=== PATIENT | male | born 1955 | race African-American/Black ===

== ENCOUNTER 2017-08-26 12:04 | Inpatient (IN) | payer MEDICARE, MEDICAID ==
[~2017-08-26] VITALS: Ht 172.7 cm; Wt 81.6 kg
[~2017-08-26 12:04] MED LIST: AMLO10TA4 PO; ASPI-991 PO; FLUO-120 PO; GABA300C PO; HYDR-552 PO; LORA1TAB82 PO; LURA80TA PO; MODA200T30 PO; OLOP2.5D EACHEYE; OXYC30TA86 PO; PANT40TA2 PO; RISP2TAB23 PO; TAMS-12 PO; TEMA15CA PO; TRAV5DRO EACHEYE
--- NOTE | 2017-08-26 12:09 | NUR ---
C/O SI AND HI. DEPRESSION, "MY FIANCE' LEFT FOR ANOTHER MAN" PLAN TO OD SELF
--- NOTE | 2017-08-26 12:28 | NUR ---
URINE SAMPLE COLLECTED SENT TO LAB
[2017-08-26 12:35] LABS: APPEARANCE,URINE Clear (CLEAR); BILIRUBIN,URINE Negative (NEGATIVE); BLOOD, URINE Negative Ery/uL (NEGATIVE); COLOR,URINE Yellow (YELLOW); KETONES,URINE Negative (NEGATIVE); LEUKOCYTE ESTERASE ,URINE Negative (NEGATIVE); NITRITE, URINE Negative (NEGATIVE); PROTEIN,URINE Negative (NEGATIVE); UGLUCOSE Negative (NEGATIVE); UROBILINOGEN,URINE 0.2 EU/dL (0.2)
[2017-08-26 12:39] LABS: BASOPHILS % (AUTO) 0.7 % (0.0-2.0); EOSINOPHILS # (AUTO) 0.1 /CMM (0.0-0.7); EOSINOPHILS % (AUTO) 1.3 % (0.0-6.0); HEMATOCRIT 41 % (39-51); HEMOGLOBIN 13.4 g/dL (13.5-17.5); LYMPHOCYTES # (AUTO) 1.4 /CMM (0.8-4.8); MEAN CORPUSCULAR HEMOGLOBIN 31 PG (26.0-33.0); MEAN CORPUSCULAR HGB CONC 33 g/dl (31.0-36.0); MEAN CORPUSCULAR VOLUME 93 fL (80-96); MONOCYTES # (AUTO) 0.5 /CMM (0.1-1.30); NEUTROPHILS # (AUTO) 2.6 /CMM (1.8-8.9); PLATELET COUNT (AUTO) 310 /CMM (150-450); RDW COEFFICIENT OF VARIATION 11.8 (11.5-15.0); RED BLOOD CELL COUNT(AUTO) 4.37 MIL/uL (4.5-6.0); WHITE BLOOD COUNT (AUTO) 4.6 K/uL (4.3-11.0)
[2017-08-26 12:50] LABS: CARBON DIOXIDE 32 mmol/L (21-32); CHLORIDE 98 mmol/L (98-107); CREATININE 0.9 mg/dL (0.6-1.3); GLUCOSE 113 mg/dL (74-106); POTASSIUM 4.4 mmol/L (3.5-5.1); SODIUM SERUM 133 mmol/L (136-145); UREA NITROGEN, BLOOD 12 mg/dL (7-18)
--- NOTE | 2017-08-26 12:50 | NUR ---
ASHLEY AT BEDSIDE FOR PSYCH EVAL
[2017-08-26 12:57] LABS: ACETAMINOPHEN 3 ug/ml (10-30); ALANINE AMINOTRANSFERASE 54 U/L (12-78); ALBUMIN 3.3 g/dL (3.4-5.0); ALCOHOL, BLOOD < 3 mg/dL (0-0); ALKALINE PHOSPHATASE 69 U/L (46-116); ASPARTATE AMINOTRANSFERASE 44 U/L (15-37); BILIRUBIN,DIRECT 0.1 mg/dL (0.0-0.2); BILIRUBIN,TOTAL 0.5 mg/dL (0.2-1.0); SALICYLATE 0.3 mg/dL (2.8-20.0); TOTAL PROTEIN, SERUM 7.2 g/dL (6.4-8.2)
--- NOTE | 2017-08-26 16:47 | NUR ---
gave report to basilio RODRIGUEZ GPS psychosis dr schroeder and dr oreilly admitting room 210
--- NOTE | 2017-08-26 16:49 | NUR ---
dx depression w suicidal ideation
[2017-08-26] MEDS ORDERED: DULO60CA45 PO (16:57)
--- NOTE | 2017-08-26 17:20 | NUR ---
GPS/RN PATIENT ADMITTED IN A VOLUNTARY STATUS UNDER THE CARE OF DR LOCKWOOD AND DR BEGUM. BOTH DR'S ARE NOTIFIED OF NEW ADMISSION, DR BEGUM NOTIFIED OF NEED TO RECONCILE MEDS IN SYSTEM, AWAITING RESPONSE. PATIENT IS ALERT X 3-4, STABLE CONDITION, AMBULATORY, SELF CARE, SKIN INTACT, DEPRESSED MOOD, BLUNTED AFFECT, PATIENT STATED THAT HE WAS HAVING SI AT HIS HOUSE EARLIER BEFORE ADMISSION HOWEVER, HE DENIES ACTIVE SI UPON ADMISSION TO UNIT. VALUABLES AND BELONGINGS COLLECTED, PATIENT HAS UPPER DENTURES IN MOUTH. AT THIS TIME PATIENT IS CALM, COOPERATIVE, NO DISTRESS NOTED, ALL NEEDS ATTENDED, WILL CONTINUE TO MONITOR Q 15 MIN FOR SAFETY AND BEHAVIOR.
[2017-08-26] MEDS ORDERED: MAG HYDROX/AL HYDROX/SIMETH 30 ML UDC PO PRN (18:00)
[2017-08-26] MEDS ORDERED: ACETAMINOPHEN 325 MG TABLET PO PRN (18:00)
[2017-08-26 20:00] VITALS: BP 143/89
[2017-08-26 20:15] VITALS: BP 99/50
[2017-08-26] MEDS: AMLODIPINE BESYLATE 10 MG TABLET PO SCH (22:00)
[2017-08-26] MEDS ORDERED: TAMSULOSIN 0.4 MG CAP.SR.24H PO SCH (22:00)
[2017-08-26] MEDS: LORAZEPAM 0.5 MG TABLET PO PRN (22:06)
[2017-08-26] MEDS: LATANOPROST EYE DROP 0.005% 2.5 ML BOTTLE EACHEYE SCH (22:06)
--- NOTE | 2017-08-26 22:06 | NUR ---
RN NOTES: PATIENT'S BP RECHECKED AT 143/89. PATIENT REFUSED SCHEDULED AMLODIPINE 10 MG PO AT THIS TIME, SAYING HE ONLY TAKES IT IF HIS SBP >150. PATIENT ALSO REFUSED FLOMAX, SAYING HE TAKES IT IN THE MORNING, OR ELSE IT WILL MAKE HIM URINATE ALL THE TIME AND CAUSE HIM TO LOSE SLEEP. EXPLAINED TO PATIENT RE MEDS, PATIENT STILL REFUSING AND STARTED TO APPEAR AGITATED. ASKED FOR ATIVAN. ATIVAN 0.5 MG PO GIVEN. WILL CONT TO MONITOR.
[2017-08-27] MEDS ORDERED: OXYC30TA86 PO (05:52)
[2017-08-27] MEDS ORDERED: MODA200T30 PO (05:52)
[2017-08-27] MEDS ORDERED: FENT1PAT7 TP (05:52)
[2017-08-27] MEDS ORDERED: KETOROLAC TROMETHAMINE INJ 60 MG/2 ML VIAL IM ONE (06:30)
[2017-08-27] MEDS ORDERED: oxyCODONE HCL SR 10MG TAB.SR.12H PO ONE ×2 (06:30→06:31)
--- NOTE | 2017-08-27 06:33 | NUR ---
RN NOTERS: PATIENT COMPLAINING OF 9/10 PAIN OVER LOWER BACK RADIATING TO BILATERAL LEGS, STATES THAT HE TAKES OXYCONTIN 30 MG PO Q 8HRS NEEDED AT HOME, AND REFUSED TO TAKE TYLENOL. CALLED DR FULLER, WHO INITIALLY ORDERED FOR KETOROLAC 60 MG IM ONE TIME DOSE. HOWEVER, MED NOT AVAILABLE AT GPS AND WITH VICE PRESIDENT [employer]ERCIAL [employer]'S NIGHT LOCKER. CALLED DR FULLER AGAIN, MD ORDERED FOR OXYCONTIN 30 MG PO ONE TIME DOSE ONLY. ALSO ASKED IF FLOMAX CAN BE CHANGED TO AM, OKAYED IT. ORDERS NOTED AND CARRIED OUT.
--- NOTE | 2017-08-27 06:44 | NUR ---
RN NOTES: PER PATIENT, HE HAS BEEN TAKING OXYCONTIN FOR YEARS, HE DOES NOT HAVE ALLERGY TO IT. ADMINISTERED OXYCONTIN 30 MG PO FOR SEVERE LOW BACK PAIN.
[2017-08-27 07:19] LABS: ALBUMIN 3.2 g/dL (3.4-5.0); BILIRUBIN,TOTAL 0.6 mg/dL (0.2-1.0); CALCIUM, SERUM 9.2 mg/dL (8.5-10.1); CHOLESTEROL 184 mg/dL (<200); CREATININE 0.9 mg/dL (0.6-1.3); HDL CHOLESTEROL 81 mg/dL (40-60); LDL 91 mg/dL (0-99); POTASSIUM 4.1 mmol/L (3.5-5.1); TOTAL PROTEIN, SERUM 7.2 g/dL (6.4-8.2); TRIGLYCERIDES 55 mg/dL (30-150)
[2017-08-27 08:00] VITALS: BP 128/77
[2017-08-27] MEDS: GABAPENTIN 300 MG CAPSULE PO SCH ×3 (09:51→17:51)
[2017-08-27] MEDS: TAMSULOSIN 0.4 MG CAP.SR.24H PO SCH (09:51)
[2017-08-27] MEDS ORDERED: FENTANYL TD PATCH (75MCG/HR) 75 MCG/HR PATCH.TD72 TD SCH ×3 (11:00→12:00)
--- NOTE | 2017-08-27 13:59 | NUR ---
Pt made threats against his fiance and the man she was having an affair. Pt informed SW that he is still having homicidal thoughts, stating "I am having homicidal thoughts towards the man that I caught my fiance with. If I get my hands on him..." As patient is on voluntary stay and due to the fact that social worker clinical is a mandated waffle machine operator, JAZIEL contacted the [place] [employer] department. JAZIEL initially spoke to veterinary receptionist Irwin who then transported JAZIEL to dispatcher Hamida. Hamida obtained the necessary information and informed JAZIEL that Office Parminder will go to intended victim's house and speak with pt's fiance. JAZIEL stated that the threats were also towards the man involved in the affair, but informed dispatcher that she had no information for that person. JAZIEL then called pt's fiance, Yoselyn Han at [phone]. JAZIEL reached Yoselyn's voicemail and left a message with contact information and informed her that patient was making threats. This is in accordance with Tarasoff bylines. Addendum: 08/27/17 at 1631 by SUMANTH SHERIFF Please note that JAZIEL called the [place] Police Department: [address], [place] [address],
--- NOTE | 2017-08-27 14:49 | NUR ---
Initial Discharge Plan Patient lived with his fiance at [address] [place] [address], . Patient states that under no circumstances does he wish to return. Patient states he has no where else to go and no family to contact. Patient states he wants to be placed at a nursing facility for short term care. SW explained that she will do her best, but that patient only has 17 co-SNF days left. SW will discuss alternative options with patient [board and care, sober living, etc]. SW will help arrange a safe and proper discharge. SW will provide patient with substance abuse referrals upon discharge.
[2017-08-27 15:39] VITALS: BP 108/60
[2017-08-27] MEDS: oxyCODONE/APAP (5/325 MG) 1 UDTAB TABLET PO PRN (15:42)
--- NOTE | 2017-08-27 16:30 | NUR ---
Please note that JAZIEL contacted the [facility] Department: [address] [address], Addendum: 08/27/17 at 1631 by SUMANTH SHERIFF This is in regards to the Tarasoff Report JAZIEL filed.
--- NOTE | 2017-08-27 18:00 | NUR ---
DR. BEGUM,DR. LOCKWOOD IN TO SEE PT.DR. BEGUM CALLED BACK PT. WANTED A DIFFERENT MED THAN PERCOCETTE,NO RETURN CALL FROM DR. BUTLER.CALLED A SECOND TIME.MED. X1 FOR PAIN WITH PERCOCETTE.
[2017-08-27 19:57] VITALS: BP 134/75
[2017-08-27 20:00] VITALS: BP 134/75
[2017-08-27] MEDS: LORAZEPAM 0.5 MG TABLET PO PRN (20:07)
[2017-08-27] MEDS: QUETIAPINE FUMARATE 100 MG TABLET PO SCH (21:05)
[2017-08-27] MEDS: LATANOPROST EYE DROP 0.005% 2.5 ML BOTTLE EACHEYE SCH (21:07)
[2017-08-27] MEDS: AMLODIPINE BESYLATE 10 MG TABLET PO SCH (21:10)
--- NOTE | 2017-08-27 21:35 | NUR ---
NON ADMINISTRATION OF NORVASC 10 MG DUE AT EVENING PER PT MY BP IS OK DESPITE EXPLAINING RISKS AND BENEFITS OFFERED 3 TIMES STILL REFUSED
[2017-08-28] MEDS: oxyCODONE/APAP (5/325 MG) 1 UDTAB TABLET PO PRN (05:56)
--- NOTE | 2017-08-28 06:43 | NUR ---
GPS CLOSING NOTES RESTING IN BED, TOLERATING ROOM AIR 99%, IN STABLE CONDITION. NO S/S OF DISTRESS, KEPT CLEAN AND DRY AND COMFORTABLE, FREQUENT VISUAL CHECK EVERY 2 HOURS FOR SAFETY, NEEDS ATTENDED AND ANTICIPATED. NURSING CARE RENDERED. ON LOW BED AT ALL TIMES. SAFE HAZARD FREE ENVIRONMENT.
[2017-08-28 07:57] VITALS: BP 133/74
--- NOTE | 2017-08-28 08:11 | NUR ---
JAZIEL received a voicemail from Venessa from the crisis team who informed SW that she placed pt on hold. Venessa stated that pt told her Yoselyn was his sister and not the fiance and that he is homeless. Please note that in the assessment with SW, pt told JAZIEL that Yoselyn was his fiance and that he lived with her and does not wish to return there.
[2017-08-28] MEDS: TAMSULOSIN 0.4 MG CAP.SR.24H PO SCH (08:41)
[2017-08-28] MEDS: GABAPENTIN 300 MG CAPSULE PO SCH ×3 (08:41→17:00)
[2017-08-28] MEDS: DULOXETINE HCL 30 MG CAPSULE.DR PO SCH (08:41)
--- NOTE | 2017-08-28 11:30 | NUR ---
pt. informed rn that he took off duragesic patch last ochoa. due to vomiting.stated he did not tell ochoa. rn,now asking for strong po pain med.told him i would contact dr. oreilly.
--- NOTE | 2017-08-28 11:35 | NUR ---
call out to dr. oreilly requesting oxycontin-states he will follow up.
[2017-08-28] MEDS ORDERED: oxyCODONE HCL SR 40MG TAB.SR.12H PO SCH (15:00)
--- NOTE | 2017-08-28 15:06 | NUR ---
oxycontin sr started.dr. oreilly in and gave order.
[2017-08-28] MEDS: oxyCODONE IR immediate release 5 MG CAPSULE PO PRN (16:04)
--- NOTE | 2017-08-28 16:04 | NUR ---
oxy -ir given.
[2017-08-28 16:09] VITALS: BP 136/77
--- NOTE | 2017-08-28 18:00 | NUR ---
states some effect from oxycontin meds.
[2017-08-28 20:02] VITALS: BP 123/76
[2017-08-28] MEDS: QUETIAPINE FUMARATE 100 MG TABLET PO SCH (21:39)
[2017-08-28] MEDS: LATANOPROST EYE DROP 0.005% 2.5 ML BOTTLE EACHEYE SCH (21:40)
[2017-08-28] MEDS: AMLODIPINE BESYLATE 10 MG TABLET PO SCH (21:44)
[2017-08-28] MEDS: oxyCODONE HCL SR 40MG TAB.SR.12H PO SCH (23:40)
[2017-08-29] MEDS: oxyCODONE IR immediate release 5 MG CAPSULE PO PRN ×4 (01:48→20:53)
--- NOTE | 2017-08-29 05:33 | NUR ---
PATIENT C/O BACK PAIN OXYCONTIN 40 MG X1 THEN OXYCOTIN 10 MG FOR A BREAK THROUGH GIVEN REFUSED JAMES STATING "I DONT HAVE BLOOD PRESSURE" , SLEPT WELL.
--- NOTE | 2017-08-29 07:05 | NUR ---
RN OPENING NOTES PT SITTING UP IN CHAIR IN ACTIVITY ROOM. COOPERATIVE. DENIES SI/AVH. AMBL INDEP. GOOD APPETITE. FREE OF INJURIES. GETS ALONG WELL W/ STAFF AND OTHER PATIENTS. WILL CONT TO MONITOR CLOSELY.
[2017-08-29] MEDS: TAMSULOSIN 0.4 MG CAP.SR.24H PO SCH (08:01)
[2017-08-29] MEDS: oxyCODONE HCL SR 40MG TAB.SR.12H PO SCH ×2 (08:02→20:07)
[2017-08-29] MEDS: GABAPENTIN 300 MG CAPSULE PO SCH ×3 (08:02→17:00)
[2017-08-29] MEDS: DULOXETINE HCL 30 MG CAPSULE.DR PO SCH (08:02)
[2017-08-29 08:13] VITALS: BP 132/77
[2017-08-29] MEDS: LORAZEPAM 0.5 MG TABLET PO PRN (11:38)
[2017-08-29] MEDS: MAGNESIUM HYDROXIDE 30 ML UDC PO PRN (11:39)
--- NOTE | 2017-08-29 13:45 | NUR ---
RN NOTES PT STATES HE SMOKES 1/2 TO 1 PACK/ DAY AND DOES NOT NEED/ WANT NICOTINE PATCH.
[2017-08-29 15:33] VITALS: BP 125/72
--- NOTE | 2017-08-29 17:53 | NUR ---
RN CLOSING NOTES PT AMBUL IN [place] W/ FWW. REFUSED GABAPENTIN 17:00 HRS DOSE. PRN OXYCODONE GIVEN AT 0900 AND 1500 HRS. DENIES SI/AVH. AMBL INDEP. GOOD APPETITE. FREE OF INJURIES. GETS ALONG WELL W/ STAFF AND OTHER PATIENTS. WILL CONT TO MONITOR CLOSELY.
[2017-08-29 20:00] VITALS: BP 124/82
--- NOTE | 2017-08-29 20:53 | NUR ---
GPS RN NOTES: PATIENT A/O X3. PATIENT COMPLAINED OF PAIN ON HIS LOWER BACK. ON A SCALE OF 0 TO 10 AND 10 IS THE WORST PAIN IMAGINABLE PATIENT RATES 8 OUT OF 10. OXYCODONE IR 10MG GIVEN ORDERED FOR BREAKTHROUGH PAIN. WILL CONTINUE TO MONITOR AND ASSESS PATIENT FOR ANY PAIN OR DISCOMFORT.
[2017-08-29] MEDS: AMLODIPINE BESYLATE 10 MG TABLET PO SCH (21:19)
[2017-08-29] MEDS: QUETIAPINE FUMARATE 25 MG TABLET PO SCH (21:19)
[2017-08-30] MEDS: LATANOPROST EYE DROP 0.005% 2.5 ML BOTTLE EACHEYE SCH ×2 (00:10→21:08)
[2017-08-30] MEDS: oxyCODONE IR immediate release 5 MG CAPSULE PO PRN ×4 (03:11→21:56)
[2017-08-30 08:00] VITALS: BP 110/78
[2017-08-30] MEDS: TAMSULOSIN 0.4 MG CAP.SR.24H PO SCH (08:01)
[2017-08-30] MEDS: GABAPENTIN 300 MG CAPSULE PO SCH ×3 (08:01→17:08)
[2017-08-30] MEDS: oxyCODONE HCL SR 40MG TAB.SR.12H PO SCH ×2 (08:01→20:43)
[2017-08-30] MEDS: DULOXETINE HCL 30 MG CAPSULE.DR PO SCH (08:01)
[2017-08-30] MEDS: LORAZEPAM 0.5 MG TABLET PO PRN (11:51)
[2017-08-30] MEDS: MAGNESIUM HYDROXIDE 30 ML UDC PO PRN (11:54)
[2017-08-30 15:59] VITALS: BP 109/70
[2017-08-30 20:00] VITALS: BP 132/80
[2017-08-30] MEDS: QUETIAPINE FUMARATE 25 MG TABLET PO SCH (21:09)
[2017-08-30] MEDS: AMLODIPINE BESYLATE 10 MG TABLET PO SCH (22:00)
--- NOTE | 2017-08-30 22:14 | NUR ---
GPS RN NOTES PATIENT REFUSED AMLODIPINE. RISKS VERSUS BENEFITS EXPLAINED TO PATIENT. PATIENT STILL REFUSED.
[2017-08-30] MEDS: TEMAZEPAM 7.5 MG CAPSULE PO PRN (23:37)
[2017-08-31] MEDS: oxyCODONE IR immediate release 5 MG CAPSULE PO PRN ×3 (06:03→21:30)
[2017-08-31 07:36] VITALS: BP 128/74
[2017-08-31] MEDS: TAMSULOSIN 0.4 MG CAP.SR.24H PO SCH (08:12)
[2017-08-31] MEDS: DULOXETINE HCL 30 MG CAPSULE.DR PO SCH (08:12)
[2017-08-31] MEDS: oxyCODONE HCL SR 40MG TAB.SR.12H PO SCH ×2 (08:13→20:14)
[2017-08-31] MEDS: GABAPENTIN 300 MG CAPSULE PO SCH ×3 (08:13→16:48)
[2017-08-31] MEDS: LORAZEPAM 0.5 MG TABLET PO PRN (14:38)
[2017-08-31 16:00] VITALS: BP 136/79
[2017-08-31 20:00] VITALS: BP 123/64
[2017-08-31] MEDS: QUETIAPINE FUMARATE 25 MG TABLET PO SCH (21:20)
[2017-08-31] MEDS: LATANOPROST EYE DROP 0.005% 2.5 ML BOTTLE EACHEYE SCH (21:21)
[2017-08-31] MEDS: AMLODIPINE BESYLATE 10 MG TABLET PO SCH (22:00)
--- NOTE | 2017-08-31 22:02 | NUR ---
GPS RN NOTES PATIENT REFUSED AMLODIPINE AGAIN. RISKS VERSUS BENEFITS EXPLAINED TO PATIENT. PATIENT CONTINUES TO REFUSE MEDICATION..
[2017-09-01] MEDS: oxyCODONE IR immediate release 5 MG CAPSULE PO PRN ×4 (03:11→23:24)
[2017-09-01 08:02] VITALS: BP 130/78
[2017-09-01] MEDS: DULOXETINE HCL 30 MG CAPSULE.DR PO SCH (08:38)
[2017-09-01] MEDS: TAMSULOSIN 0.4 MG CAP.SR.24H PO SCH (08:38)
[2017-09-01] MEDS: GABAPENTIN 300 MG CAPSULE PO SCH ×3 (08:38→16:33)
[2017-09-01] MEDS: oxyCODONE HCL SR 40MG TAB.SR.12H PO SCH ×2 (08:38→21:08)
--- NOTE | 2017-09-01 10:06 | NUR ---
RN NOTES ADMINISTERED OXY IR 20 MG PO PRN FOR GENERALIZED PAIN 05/23, V/S TAKEN BP -132/78, P-83, ENCOURAGED TO INCREASE FLUID INTAKE, SAFETY PRECAUTION MAINTAINED ALL THE TIME.
--- NOTE | 2017-09-01 11:13 | NUR ---
RN NOTES PER Dr. SMALLWOOD VERBAL ORDER, ORDERED ARTIFICIAL TEARS Q 8HR PRN, ORDER TAKEN AND CARRIED OUT. Addendum: 09/01/17 at 1116 by DARRIUS MCFARLAND RN AMENDMENT OF ABOVE NOTES. ARTIFICIAL TEARS FOR DRY EYES.
[2017-09-01] MEDS ORDERED: POLYVINYL ALCOHOL 15 ML BOTTLE EACHEYE PRN (11:30)
[2017-09-01] MEDS: LORAZEPAM 0.5 MG TABLET PO PRN (13:51)
--- NOTE | 2017-09-01 13:51 | NUR ---
RN NOTES ADMINISTERED ATIVAN O.5 MG PO PRN, AND ARTIFICIAL TEARS FOR DRY EYES, V/S TAKEN BP 128/76, P-80, CONTINUED MONITORING.
[2017-09-01 16:00] VITALS: BP 120/77
--- NOTE | 2017-09-01 16:52 | NUR ---
RN NOTES ADMINISTERED OXY IR 20 MG PO PRN FOR GENERALIZED PAIN 8/10, PER SLIDING SCALE. PER PATIENT REQUEST, V/S TAKEN STABLE BP -120/77, P-76, CONTINUED MONITORING.
--- NOTE | 2017-09-01 18:30 | NUR ---
RN NOTES CALLED DR BEGUM FOR BREATHING TREATMENT, GET ORDER ALBUTEROL 2 PUFFS Q 4 HR. ORDER TAKEN, AND CARRIED OUT.
[2017-09-01] MEDS ORDERED: ALBUTEROL FS 2.5 MG/0.5 ML VIAL.NEB NEB PRN (19:00)
[2017-09-01 19:34] VITALS: BP 127/77
[2017-09-01] MEDS: QUETIAPINE FUMARATE 25 MG TABLET PO SCH (21:07)
[2017-09-01] MEDS: AMLODIPINE BESYLATE 10 MG TABLET PO SCH ×2 (21:07→21:14)
[2017-09-01] MEDS: LATANOPROST EYE DROP 0.005% 2.5 ML BOTTLE EACHEYE SCH (21:08)
--- NOTE | 2017-09-01 21:14 | NUR ---
RN NOTES PATIENT REFUSED NORVASC 10 MG X3, STATES HE DOES NOT TAKE BLOOD PRESSURE MEDICATION. PATIENT EDUCATION REINFORCED. WILL CONTINUE TO MONITOR.
--- NOTE | 2017-09-01 23:24 | NUR ---
RN NOTES ADMINISTERED OXYCODONE IR 20MG ORDERED FOR PAIN 8/10 IN LOWER BACK. VSS. WILL CONTINUE TO MONITOR.
[2017-09-02] MEDS: oxyCODONE IR immediate release 5 MG CAPSULE PO PRN ×4 (05:02→23:17)
--- NOTE | 2017-09-02 05:02 | NUR ---
RN NOTES ADMINISTERED OXYCODONE IR 20MG ORDERED FOR PAIN 10/10 IN BOTH LEGS. VSS. WILL CONTINUE TO MONITOR.
[2017-09-02 08:06] VITALS: BP 113/78
[2017-09-02] MEDS: TAMSULOSIN 0.4 MG CAP.SR.24H PO SCH (08:19)
[2017-09-02] MEDS: GABAPENTIN 300 MG CAPSULE PO SCH ×3 (08:19→17:03)
[2017-09-02] MEDS: DULOXETINE HCL 30 MG CAPSULE.DR PO SCH (08:19)
[2017-09-02] MEDS: oxyCODONE HCL SR 40MG TAB.SR.12H PO SCH ×2 (08:19→20:58)
--- NOTE | 2017-09-02 11:09 | NUR ---
GPS/RN PATIENT REPORTS 9/10 BACK PAIN, ADMINISTERED OXY JR 20 MG, WILL CONTINUE TO MONITOR.
[2017-09-02] MEDS: LORAZEPAM 0.5 MG TABLET PO PRN (13:54)
--- NOTE | 2017-09-02 13:54 | NUR ---
GPS/RN PATIENT ANXIOUS, RESTLESS, REQUESTED ATIVAN, ADMINISTERED ATIVAN 0.5 MG ORDERED. WILL CONTINUE TO MONITOR.
[2017-09-02 15:43] VITALS: BP 129/87
--- NOTE | 2017-09-02 17:15 | NUR ---
GPS/RN PATIENT REPORTS 8/10 BACK PAIN, ADMINISTERED OXY JR 20 MG, WILL CONTINUE TO MONITOR.
[2017-09-02 19:53] VITALS: BP 119/70
[2017-09-02] MEDS: QUETIAPINE FUMARATE 25 MG TABLET PO SCH (21:00)
[2017-09-02] MEDS: LATANOPROST EYE DROP 0.005% 2.5 ML BOTTLE EACHEYE SCH (21:02)
[2017-09-02] MEDS: AMLODIPINE BESYLATE 10 MG TABLET PO SCH (21:15)
[2017-09-03] MEDS: TEMAZEPAM 7.5 MG CAPSULE PO PRN (01:31)
[2017-09-03] MEDS: oxyCODONE IR immediate release 5 MG CAPSULE PO PRN ×3 (05:46→17:48)
[2017-09-03 08:10] VITALS: BP 147/83
[2017-09-03] MEDS: TAMSULOSIN 0.4 MG CAP.SR.24H PO SCH (08:35)
[2017-09-03] MEDS: DULOXETINE HCL 30 MG CAPSULE.DR PO SCH (08:35)
[2017-09-03] MEDS: GABAPENTIN 300 MG CAPSULE PO SCH ×3 (08:35→16:42)
[2017-09-03] MEDS: oxyCODONE HCL SR 40MG TAB.SR.12H PO SCH ×2 (08:36→20:03)
--- NOTE | 2017-09-03 10:36 | NUR ---
Discharge Planning: JAZIEL faxed an inquiry for short term stay for patient to [place] from [facility] Address: [address] [place] [address] / fax number [phone]. JAZIEL will follow up.
--- NOTE | 2017-09-03 11:50 | NUR ---
GPS/RN PATIENT REPORTS 8/10 BACK PAIN, ADMINISTERED OXY IR 20 MG, WILL CONTINUE TO MONITOR.
[2017-09-03 15:29] VITALS: BP 125/76
--- NOTE | 2017-09-03 17:50 | NUR ---
GPS/RN PATIENT REPORTS 10/10 BILATERAL LEG PAIN, ADMINISTERED OXY IR 20 MG, WILL CONTINUE TO MONITOR.
[2017-09-03] MEDS: LATANOPROST EYE DROP 0.005% 2.5 ML BOTTLE EACHEYE SCH (21:08)
[2017-09-03] MEDS: AMLODIPINE BESYLATE 10 MG TABLET PO SCH (21:09)
[2017-09-03] MEDS: QUETIAPINE FUMARATE 25 MG TABLET PO SCH (21:12)
[2017-09-04] MEDS: oxyCODONE IR immediate release 5 MG CAPSULE PO PRN ×2 (01:52→07:56)
[2017-09-04 08:00] VITALS: BP 152/92
[2017-09-04] MEDS: GABAPENTIN 300 MG CAPSULE PO SCH ×2 (08:56→12:01)
[2017-09-04] MEDS: DULOXETINE HCL 30 MG CAPSULE.DR PO SCH (08:57)
[2017-09-04] MEDS: TAMSULOSIN 0.4 MG CAP.SR.24H PO SCH (08:57)
[2017-09-04] MEDS: oxyCODONE HCL SR 40MG TAB.SR.12H PO SCH (08:58)
[2017-09-04] MEDS: LORAZEPAM 0.5 MG TABLET PO PRN (09:43)
--- NOTE | 2017-09-04 13:30 | NUR ---
GPS DISCHARGE NOTE: PATIENT DISCHARGE DONAV[facility] BROWNING [address], [address] IN STABLE CONDITION NO S/S DISTRESS NOTED ,PT DENIES SI/HI COMPLIANT WITH MEDICATIONS, AMBULATORY. DR SMALLWOOD AND DR BEGUM AWARE AND AGREED TO DC PT WITH CONTINUE MEDICATIONS . EXIT CARE DONE PRINTED,SIGN AND GIVEN TO PT PT EXPLAIN MEDICATION MGMT AND MED RECON EXPLAIN AND GIVEN WITH PT, PT REFUSED SKIN ASSESSMENT ALL BELONGINGS RETURNED, REPORT GIVEN TO ANTONELLA.
--- NOTE | 2017-09-04 13:59 | NUR ---
Discharge Note: Patient will be discharged to [facility] [address], [address] via ambulance transportation arranged by social insurance specialist. Patient has no family to notify. Patient will be seen by his psychiatrist, Dr. Baca [address], [place], [place] [id number] [phone] at the facility on Saturday, 09/09 at 10am. Patient will also be seen by his carbon capture power plant manager Dr. Faulkner [address], [place] [address] [phone] on Saturday, 09/11 at 2pm. Upon discharge, patient appeared to be alert and oriented x4. Patient denied suicidal ideation. Patient denied homicidal ideation. Patient denies visual and auditory hallucinations. Please note that, following the Tarasoff law, social insurance specialist made a call to the [place] [employer] Department: [address] [place] [address], informing them of patients placement and discharge. JAZIEL spoke with dispatcher Hamida. Hamida stated that she remembered the case and that they had sent over a ict educator to speak to Yoselyn Han. Hamida informed JAZIEL that Yoselyn was not patients fianc [as patient had told JAZIEL] but that she was his sister who was familiar with pts mental health issues. Hamida stated that Yoselyn was not concerned for her safety by any means, but thanked JAZIEL for following up and informing the police department about pts discharge. poultry process worker also called patients sister [previously thought fianc], Yoselyn Han at [phone] to inform her of the discharge. JAZIEL left a voicemail with contact information.
== END 2017-09-04 13:30 | DRG 885 ==
LOC: ER 12:08 → GPS 17:12
PROVIDERS: ADMIT Psychiatry & Neurology Psychiatry; ATTEND Internal Medicine
DX: F31.30 Bipolar disorder, current episode depressed, mild or moderate severity, unspecified (principal); G62.9 Polyneuropathy, unspecified; F23 Brief psychotic disorder; E78.5 Hyperlipidemia, unspecified; F17.210 Nicotine dependence, cigarettes, uncomplicated; F41.9 Anxiety disorder, unspecified; I10 Essential (primary) hypertension; J44.9 Chronic obstructive pulmonary disease, unspecified; M79.7 Fibromyalgia; N40.0 Benign prostatic hyperplasia without lower urinary tract symptoms; Z59.0 Homelessness; Z79.899 Other long term (current) drug therapy; Z73.6 Limitation of activities due to disability; M19.90 Unspecified osteoarthritis, unspecified site; H40.9 Unspecified glaucoma
CPT/HCPCS: 36415; 80048-TC; 80053-TC; 80061-TC; 80076-TC; 80305; 81000-TC; 85025-TC; 87081-TC; G0480; J1885

== ENCOUNTER 2018-11-27 18:31 | Emergency (ER) | payer MEDICARE, MEDICAID ==
[~2018-11-27] VITALS: Ht 157.5 cm; Wt 72.6 kg
[~2018-11-27 18:31] MED LIST changes: -ASPI-991 PO; +DULO60CA45 PO; +FENT1PAT7 TP; -FLUO-120 PO; -HYDR-552 PO; -LORA1TAB82 PO; +MODA200T22 PO; -MODA200T30 PO; -OLOP2.5D EACHEYE; -PANT40TA2 PO; -RISP2TAB23 PO; -TEMA15CA PO
--- NOTE | 2018-11-27 19:00 | NUR ---
SUICIDAL IDEATION BY OVERDOSING ON MEDS. STATES HE ALREADY ATTEMPTED BY TAKING TRAZODONE. HAS MADE 3-4 ATTEMPTS IN THE PAST. SUICIDAL PRECAUTIONS IMPLEMENTED. READY FOR EVAL.
--- NOTE | 2018-11-27 19:34 | NUR ---
URINE SENT TO STAT LAB
[2018-11-27 19:40] LABS: BASOPHILS # (AUTO) 0.1 /CMM (0.0-0.2); BASOPHILS % (AUTO) 1.3 % (0.0-2.0); EOSINOPHILS % (AUTO) 4.9 % (0.0-6.0); HEMATOCRIT 39 % (39-51); HEMOGLOBIN 12.8 g/dL (13.5-17.5); LYMPHOCYTES # (AUTO) 1.9 /CMM (0.8-4.8); LYMPHOCYTES % (AUTO) 33.6 % (20.0-44.0); MEAN CORPUSCULAR HGB CONC 33 g/dl (31.0-36.0); MEAN CORPUSCULAR VOLUME 96 fL (80-96); MONOCYTES # (AUTO) 0.6 /CMM (0.1-1.30); MONOCYTES % (AUTO) 11.2 % (2.0-12.0); NEUTROPHILS # (AUTO) 2.8 /CMM (1.8-8.9); PLATELET COUNT (AUTO) 254 /CMM (150-450); RED BLOOD CELL COUNT(AUTO) 4.04 MIL/uL (4.5-6.0); WHITE BLOOD COUNT (AUTO) 5.7 K/uL (4.3-11.0)
[2018-11-27 19:41] LABS: APPEARANCE,URINE Clear (CLEAR); BILIRUBIN,URINE SMALL (NEGATIVE); BLOOD, URINE Negative Ery/uL (NEGATIVE); COLOR,URINE Dark (YELLOW); KETONES,URINE Trace (NEGATIVE); LEUKOCYTE ESTERASE ,URINE Negative (NEGATIVE); NITRITE, URINE Negative (NEGATIVE); PH,URINE 5.5 (5.0-8.0); PROTEIN,URINE Negative (NEGATIVE); UGLUCOSE Negative (NEGATIVE)
[2018-11-27 19:49] LABS: CARBON DIOXIDE 24 mmol/L (21-32); CHLORIDE 106 mmol/L (98-107); CREATININE 0.7 mg/dL (0.6-1.3); GLUCOSE 105 mg/dL (74-106); POTASSIUM 3.6 mmol/L (3.5-5.1); SODIUM SERUM 139 mmol/L (136-145); UREA NITROGEN, BLOOD 10 mg/dL (7-18)
[2018-11-27 19:54] LABS: BACTERIA,URINE Few /HPF (None Seen); RBC,URINE 0-2 /HPF (0-2); SQUAMOUS EPITHELIAL CELL,UR Few /HPF (None Seen); WBC,URINE 0-2 /HPF (0-3)
[2018-11-27 19:55] LABS: ALANINE AMINOTRANSFERASE 28 U/L (12-78); ALBUMIN 3.4 g/dL (3.4-5.0); ALCOHOL, BLOOD < 3 mg/dL (0-0); ALKALINE PHOSPHATASE 92 U/L (46-116); ASPARTATE AMINOTRANSFERASE 33 U/L (15-37); BILIRUBIN,DIRECT 0.3 mg/dL (0.0-0.2); BILIRUBIN,TOTAL 1.1 mg/dL (0.2-1.0)
[2018-11-27 19:56] LABS: ACETAMINOPHEN < 2 ug/ml (10-30); SALICYLATE < 2.8 mg/dL (2.8-20.0)
--- NOTE | 2018-11-27 20:11 | NUR ---
PT GIVEN SANDWICH AND JUICE. OK PER MD
[2018-11-27 22:02] VITALS: BP 127/95
--- NOTE | 2018-11-27 22:02 | NUR ---
Patient is resting comfortably in bed with eyes closed. Easily aroused. VSS
--- NOTE | 2018-11-27 22:51 | NUR ---
CALLED [facility] FOR TRANSPORT ETA OF 0030 WAS GIVEN. TRIP#[id number]
--- NOTE | 2018-11-27 23:22 | NUR ---
REPORT GIVEN TO HAL AT [facility]
--- NOTE | 2018-11-28 00:01 | NUR ---
REPORT REC'D FROM JENNIFER ROCK FOR SPIKE.
--- NOTE | 2018-11-28 00:47 | NUR ---
[facility] CALLED ETA 2-3MINS.
--- NOTE | 2018-11-28 01:14 | NUR ---
REPORT GIVEN TO EMT FOR AMBULANZ. PT IS TRANSFERRING TO [facility]. PT LEFT VIA AMBULANCE.
== END 2018-11-28 01:18 ==
LOC: ER 18:32
DX: R45.851 Suicidal ideations (principal); F31.9 Bipolar disorder, unspecified; I10 Essential (primary) hypertension; M79.7 Fibromyalgia; F17.210 Nicotine dependence, cigarettes, uncomplicated; F15.10 Other stimulant abuse, uncomplicated; F12.10 Cannabis abuse, uncomplicated; I70.0 Atherosclerosis of aorta; Z86.19 Personal history of other infectious and parasitic diseases; Z98.890 Other specified postprocedural states; Z88.5 Allergy status to narcotic agent; Z59.0 Homelessness
CPT/HCPCS: 36415; 71045; 80048; 80076; 80305; 80307; 80329; 81001; 85025; 99285; G0480; 81000-TC

== ENCOUNTER 2019-03-05 14:52 | Inpatient (IN) | payer MEDICARE, MEDICAID ==
[~2019-03-05] VITALS: Ht 167.6 cm; Wt 70.8 kg
--- NOTE | 2019-03-05 15:05 | NUR ---
"Abdominal pain for weeks worse now today also started w/chest pain" Patient breathing even and unlabored, no sob noted, still c/o abdominal pain, patient attached on the monitor.
[2019-03-05 15:29] LABS: BASOPHILS # (AUTO) 0.1 /CMM (0.0-0.2); BASOPHILS % (AUTO) 0.7 % (0.0-2.0); EOSINOPHILS % (AUTO) 0.6 % (0.0-6.0); HEMATOCRIT 39 % (39-51); HEMOGLOBIN 13.3 g/dL (13.5-17.5); LYMPHOCYTES # (AUTO) 1.2 /CMM (0.8-4.8); LYMPHOCYTES % (AUTO) 16.8 % (20.0-44.0); MEAN CORPUSCULAR HGB CONC 34 g/dl (31.0-36.0); MEAN CORPUSCULAR VOLUME 94 fL (80-96); MONOCYTES # (AUTO) 0.6 /CMM (0.1-1.30); NEUTROPHILS # (AUTO) 5.1 /CMM (1.8-8.9); NEUTROPHILS % (AUTO) 72.9 % (43.0-81.0); PLATELET COUNT (AUTO) 234 /CMM (150-450); RED BLOOD CELL COUNT(AUTO) 4.15 MIL/uL (4.5-6.0)
[2019-03-05] MEDS ORDERED: HYDROMORPHONE MDV 1 MG in IV D5W 50 ML IV PRN (15:30)
[2019-03-05] MEDS ORDERED: IV NS 0.9% 1,000 ML BAG IV ONE (15:30)
[2019-03-05 15:39] LABS: CALCIUM, SERUM 9.1 mg/dL (8.5-10.1); CARBON DIOXIDE 26 mmol/L (21-32); CHLORIDE 104 mmol/L (98-107); CREATININE 0.9 mg/dL (0.6-1.3); GLUCOSE 128 mg/dL (74-106); POTASSIUM 3.6 mmol/L (3.5-5.1); SODIUM SERUM 141 mmol/L (136-145); UREA NITROGEN, BLOOD 12 mg/dL (7-18)
[2019-03-05 15:52] LABS: ALANINE AMINOTRANSFERASE 26 U/L (12-78); ALBUMIN 3.4 g/dL (3.4-5.0); ALKALINE PHOSPHATASE 112 U/L (46-116); ASPARTATE AMINOTRANSFERASE 21 U/L (15-37); B-TYPE NATRIURETIC PEPTIDE 24 PG/ML (0-125); BILIRUBIN,TOTAL 0.3 mg/dL (0.2-1.0); TOTAL PROTEIN, SERUM 7.3 g/dL (6.4-8.2)
[2019-03-05] MEDS ORDERED: HYDROMORPHONE INJ 0.5 MG/0.5 ML SYRINGE IV ONE ×2 (16:00→17:00)
[2019-03-05] MEDS ORDERED: IV NS 0.9% 250 ML IV ONE (16:03)
[2019-03-05] MEDS ORDERED: IOHEXOL-350 100 ML VIAL IV ONE (16:03)
[2019-03-05] MEDS ORDERED: CT SWABBABLE VALVE TRANS SET 1 EA INFUS.SET MC ONE (16:03)
[2019-03-05] MEDS ORDERED: HYDROMORPHONE 1 MG/1 ML DISP.SYRIN ONE ×3 (16:06→19:53)
[2019-03-05] MEDS ORDERED: OXYC20TA58 PO (16:48)
[2019-03-05] MEDS ORDERED: BIMA2.5D5 EACHEYE (16:48)
--- NOTE | 2019-03-05 16:50 | NUR ---
GOT BED 110
[2019-03-05] MEDS ORDERED: LORAZEPAM INJ 2 MG/ML VIAL ONE ×2 (16:54→19:53)
--- NOTE | 2019-03-05 16:58 | NUR ---
Patient given another dose of dilaudid, patient refused to have CT, before the dilaudid due to abdominal pain.
[2019-03-05] MEDS ORDERED: LORAZEPAM INJ 2 MG/ML VIAL IV ONE (17:00)
[2019-03-05 17:14] LABS: APPEARANCE,URINE Clear (CLEAR); BILIRUBIN,URINE Negative (NEGATIVE); BLOOD, URINE Negative Ery/uL (NEGATIVE); COLOR,URINE Yellow (YELLOW); KETONES,URINE Negative (NEGATIVE); LEUKOCYTE ESTERASE ,URINE Negative (NEGATIVE); NITRITE, URINE Negative (NEGATIVE); PH,URINE 7.5 (5.0-8.0); PROTEIN,URINE Negative (NEGATIVE); UGLUCOSE Negative (NEGATIVE); UROBILINOGEN,URINE 0.2 EU/dL (0.2)
--- NOTE | 2019-03-05 18:46 | NUR ---
REPORT GIVEN TO FRANCISCO JAVIER RODRIGUEZ.
--- NOTE | 2019-03-05 19:10 | NUR ---
RECEIVED REPORT FROM JENNIFER NASH FOR SPIKE. PT IS NOT IN BED FOR SCAN.
--- NOTE | 2019-03-05 19:37 | NUR ---
PATIENT REFUSED ATIVAN, ATIVAN WASTED WITNESSED BY ANOTHER NURSE.
--- NOTE | 2019-03-05 19:38 | NUR ---
PATIENT ENDORSED TO MARY RODRIGUEZ FOR SPIKE.
--- NOTE | 2019-03-05 19:48 | NUR ---
CALLED DR CORONEL FOR CONSULT
[2019-03-05] MEDS ORDERED: LORAZEPAM INJ 2 MG/ML VIAL IV PRN (20:00)
[2019-03-05] MEDS ORDERED: HYDROMORPHONE INJ 0.5 MG/0.5 ML SYRINGE IV PRN (20:00)
--- NOTE | 2019-03-05 20:09 | NUR ---
CALLED DR CORONEL FOR GEN SURG CONSULT, LEFT VOICEMAIL MS [phone]
--- NOTE | 2019-03-05 20:49 | NUR ---
DR WISE SPEAKING WITH DR CORONEL.
--- NOTE | 2019-03-05 21:09 | NUR ---
INFORMED NURSING SUP AND MELANIE NURSE PT WILL BE DISCHARGED
--- NOTE | 2019-03-05 21:10 | NUR ---
DCPatient discharged to home in stable condition. Written and verbal after care instructions given. Patient verbalizes understanding of instruction.IV removed. Catheter intact and site benign. Pressure and 4x4 applied to site. No bleeding noted. Pt ambulatory with a steady gait. Pt requested for TAP caard and given. Pt denies of being homeless
[2019-03-05 21:48] VITALS: BP 142/93
== END 2019-03-05 21:10 | disposition home or self-care (01) | DRG 313 ==
LOC: ER 14:54 → TELE1 17:06
PROVIDERS: ADMIT Registered Nurse; ATTEND Registered Nurse
DX: R07.9 Chest pain, unspecified (principal); E87.2 Acidosis; F11.20 Opioid dependence, uncomplicated; I10 Essential (primary) hypertension; N40.0 Benign prostatic hyperplasia without lower urinary tract symptoms; Z90.49 Acquired absence of other specified parts of digestive tract; Z87.891 Personal history of nicotine dependence; Z86.718 Personal history of other venous thrombosis and embolism; Z79.899 Other long term (current) drug therapy; Z59.0 Homelessness; M79.7 Fibromyalgia; J44.9 Chronic obstructive pulmonary disease, unspecified; H40.9 Unspecified glaucoma; Z88.5 Allergy status to narcotic agent
CPT/HCPCS: 36415; 71045-TC; 78582; 80048-TC; 80076-TC; 81000-TC; 83605-TC; 83880; 84484-TC; 85025-TC; 85730-TC; 87040-TC; 87081-TC; 87086-TC; 93970-TC; A9540; A9567; G0378; J1170; J2060; J7030; J7050; J7060; Q9967

== ENCOUNTER 2019-06-23 22:29 | Emergency (ER) | payer MEDICARE, MEDICAID ==
[~2019-06-23] VITALS: Ht 172.7 cm; Wt 74.8 kg
[2019-06-23] MEDS: IV NS 0.9% 1,000 ML BAG IV ONE
[2019-06-23] MEDS: ONDANSETRON HCL/PF 4 MG/2 ML VIAL IVP ONE
[~2019-06-23 22:29] MED LIST changes: +BIMA2.5D5 EACHEYE; -FENT1PAT7 TP; -GABA300C PO; -MODA200T22 PO; +OXYC20TA58 PO; -TRAV5DRO EACHEYE
--- NOTE | 2019-06-23 22:45 | NUR ---
PT BIBSELF C/O SOB DUE TO "MY COPD" AND ABD PAIN WITH N/V. PT AXO4. RESPIRATIONS EVEN AND UNLABORED. PT PUT ON THE PEDIATRICS PHYSICIAN AND PULSE OX.
--- NOTE | 2019-06-23 22:46 | NUR ---
Kenya royal in [facility] - 06/24/19 at 0206 by LAURA PT STATES BEING SI WITH PLAN. DID NOT WANT TO TELL BECAUSE WANTED OTHER SYMPTOMS TO BE TREATED.
--- NOTE | 2019-06-23 23:15 | NUR ---
PUNCH PRESS OPERATOR AT BEDSIDE, LABS DRAWN AND SENT TO LAB.
[2019-06-23 23:24] LABS: BASOPHILS # (AUTO) 0.1 /CMM (0.0-0.2); BASOPHILS % (AUTO) 1.2 % (0.0-2.0); EOSINOPHILS % (AUTO) 1.6 % (0.0-6.0); HEMATOCRIT 38 % (39-51); LYMPHOCYTES # (AUTO) 1.1 /CMM (0.8-4.8); LYMPHOCYTES % (AUTO) 21.1 % (20.0-44.0); MEAN CORPUSCULAR HGB CONC 34 g/dl (31.0-36.0); MEAN CORPUSCULAR VOLUME 90 fL (80-96); MONOCYTES # (AUTO) 0.8 /CMM (0.1-1.30); NEUTROPHILS # (AUTO) 3.1 /CMM (1.8-8.9); NEUTROPHILS % (AUTO) 60.1 % (43.0-81.0); PLATELET COUNT (AUTO) 233 /CMM (150-450); RED BLOOD CELL COUNT(AUTO) 4.24 MIL/uL (4.5-6.0); WHITE BLOOD COUNT (AUTO) 5.1 K/uL (4.3-11.0)
[2019-06-23 23:34] LABS: CALCIUM, SERUM 9.4 mg/dL (8.5-10.1); CARBON DIOXIDE 27 mmol/L (21-32); CHLORIDE 99 mmol/L (98-107); GLUCOSE 94 mg/dL (74-106); POTASSIUM 4.1 mmol/L (3.5-5.1); SODIUM SERUM 135 mmol/L (136-145); UREA NITROGEN, BLOOD 15 mg/dL (7-18)
--- NOTE | 2019-06-23 23:44 | NUR ---
PT BROUGHT BY RADIOLOGY FOR CT
[2019-06-23 23:48] LABS: B-TYPE NATRIURETIC PEPTIDE 79 PG/ML (0-125)
--- NOTE | 2019-06-23 23:55 | NUR ---
PT RETURNED FROM CT VIA [facility].
[2019-06-24] MEDS: ONDANSETRON HCL/PF 4 MG/2 ML VIAL IVP ONE
[2019-06-24] MEDS: IV NS 0.9% 1,000 ML BAG IV ONE
[2019-06-24 00:28] LABS: LYMPHOCYTES % (MANUAL) 20 % (16-48)
[2019-06-24 00:28] LABS: ALANINE AMINOTRANSFERASE 27 U/L (12-78); ALBUMIN 3.8 g/dL (3.4-5.0); ALCOHOL, BLOOD < 3 mg/dL (0-0); ALKALINE PHOSPHATASE 94 U/L (46-116); ASPARTATE AMINOTRANSFERASE 38 U/L (15-37); BILIRUBIN,DIRECT 0.1 mg/dL (0.0-0.2); BILIRUBIN,TOTAL 0.6 mg/dL (0.2-1.0); SALICYLATE 1.2 mg/dL (2.8-20.0); TOTAL PROTEIN, SERUM 7.7 g/dL (6.4-8.2)
[2019-06-24] MEDS ORDERED: ONDANSETRON HCL/PF 4 MG/2 ML VIAL ONE (00:28)
[2019-06-24 00:29] LABS: ACETAMINOPHEN < 2 ug/ml (10-30)
[2019-06-24 00:36] LABS: EOSINOPHILS % (MANUAL) 2 % (0-4); MONOCYTES % (MANUAL) 14 % (0-11.0); NEUTROPHILS % (MANUAL) 64 (42-76)
[2019-06-24 00:46] LABS: APPEARANCE,URINE Clear (CLEAR); BILIRUBIN,URINE Negative (NEGATIVE); BLOOD, URINE Negative Ery/uL (NEGATIVE); COLOR,URINE Yellow (YELLOW); KETONES,URINE Negative (NEGATIVE); LEUKOCYTE ESTERASE ,URINE Negative (NEGATIVE); NITRITE, URINE Negative (NEGATIVE); PROTEIN,URINE Negative (NEGATIVE); UGLUCOSE Negative (NEGATIVE); UROBILINOGEN,URINE 0.2 EU/dL (0.2)
--- NOTE | 2019-06-24 02:06 | NUR ---
PT WANDERING HALLWAY, WANTING TO LEAVE.
--- NOTE | 2019-06-24 02:55 | NUR ---
Patient discharged to home in stable condition. Written and verbal after care instructions given. Patient verbalizes understanding of instruction. IV removed. Catheter intact and site benign. Pressure and 4x4 applied to site. No bleeding noted.
[2019-06-24 03:07] VITALS: BP 160/99
== END 2019-06-24 03:07 | disposition home or self-care (01) ==
LOC: ER 22:35
DX: K29.70 Gastritis, unspecified, without bleeding (principal); F15.10 Other stimulant abuse, uncomplicated; I10 Essential (primary) hypertension; M79.7 Fibromyalgia; R19.7 Diarrhea, unspecified; F17.210 Nicotine dependence, cigarettes, uncomplicated; Z98.890 Other specified postprocedural states; Z86.73 Personal history of transient ischemic attack (TIA), and cerebral infarction without residual deficits; Z88.6 Allergy status to analgesic agent; Z59.0 Homelessness; Z79.899 Other long term (current) drug therapy
CPT/HCPCS: 36415 ×2; 71045; 74176; 80048; 80076; 80305; 80307; 80329; 81001; 83880; 84484 ×2; 85025; 93005; 96361; 96374; 99284; G0480; J2405; J7030; 81000-TC

== ENCOUNTER 2019-08-27 13:28 | Emergency (ER) | payer MEDICARE, MEDICAID ==
[~2019-08-27] VITALS: Ht 172.7 cm; Wt 70.8 kg
--- NOTE | 2019-08-27 13:42 | NUR ---
SECURITY CALLED FOR WANDING, BELONGINS PLACED ON SAFE. 1:1 SITTER AT BEDSIDE.
--- NOTE | 2019-08-27 14:00 | NUR ---
patient came in to the ER c/o depression, hearing voices. si, +.plan to OD on heroin. "i want to be on a 5150 hold." on room air, breathing evenly and unlabored. connected to the monitor and pulse ox. Sitter at bedside for constant monitoring.
[2019-08-27 14:05] LABS: BASOPHILS % (AUTO) 0.3 % (0.0-2.0); EOSINOPHILS % (AUTO) 0.3 % (0.0-6.0); HEMATOCRIT 39 % (39-51); HEMOGLOBIN 12.8 g/dL (13.5-17.5); LYMPHOCYTES # (AUTO) 1.5 /CMM (0.8-4.8); LYMPHOCYTES % (AUTO) 15.4 % (20.0-44.0); MEAN CORPUSCULAR HGB CONC 33 g/dl (31.0-36.0); MEAN CORPUSCULAR VOLUME 92 fL (80-96); MONOCYTES # (AUTO) 0.9 /CMM (0.1-1.30); MONOCYTES % (AUTO) 9.4 % (2.0-12.0); NEUTROPHILS % (AUTO) 74.6 % (43.0-81.0); PLATELET COUNT (AUTO) 337 /CMM (150-450); RED BLOOD CELL COUNT(AUTO) 4.26 MIL/uL (4.5-6.0); WHITE BLOOD COUNT (AUTO) 9.4 K/uL (4.3-11.0)
[2019-08-27 14:27] LABS: APPEARANCE,URINE Clear (CLEAR); BILIRUBIN,URINE Negative (NEGATIVE); BLOOD, URINE Negative Ery/uL (NEGATIVE); COLOR,URINE Yellow (YELLOW); KETONES,URINE Negative (NEGATIVE); LEUKOCYTE ESTERASE ,URINE Negative (NEGATIVE); NITRITE, URINE Negative (NEGATIVE); PROTEIN,URINE Negative (NEGATIVE); UGLUCOSE Negative (NEGATIVE); UROBILINOGEN,URINE 0.2 EU/dL (0.2)
[2019-08-27 14:28] LABS: CALCIUM, SERUM 9.7 mg/dL (8.5-10.1); CREATININE 0.9 mg/dL (0.6-1.3); POTASSIUM 3.7 mmol/L (3.5-5.1)
[2019-08-27 14:34] LABS: BILIRUBIN,DIRECT 0.1 mg/dL (0.0-0.2); BILIRUBIN,TOTAL 0.5 mg/dL (0.2-1.0); SALICYLATE 0.8 mg/dL (2.8-20.0); TOTAL PROTEIN, SERUM 8.3 g/dL (6.4-8.2)
--- NOTE | 2019-08-27 15:00 | NUR ---
Social service consult requested by Dr. Flores for suicidal ideation with a plan. Pt. is a 64 year old male who came to [facility] stating that he's been feeling depressed over the past month and a half and wants to kill himself by overdosing on heroin. He states that he is feeling hopeless after he lost his family members and his fiance. JAZIEL met with the pt. bedside. Pt. is alert and oriented x 4. Pt. wears dentures. Pt's mood is congruent. Pt. states he has a history of depression, suicidal ideation, prior opiate abuse. Pt. informed SW that he has not used drugs or had alcohol in the past few months, however, pt's toxicology is positive for methamphetamines. Pt. smoke up to 2 packs of cigarettes per day. Pt states he would like voluntary admission at [facility]. Pt. prefers [place] location. Pt. was recently discharged from [facility] location. Pt. has a psychiatric diagnosis of Bipolar with Depression. Pt. is taking Latuda daily. Pt. was on Cymbalta but it has been discontinued. Pt. is originally from [facility]. Pt. was seeing a psychiatrist in [place] 10 weeks ago. Pt's emergency contact is his daughter Spencer . JAZIEL contacted Romeo at [facility] regarding bed availibility. Per Romeo, they will have a bed available for the pt. at the [place] location. JAZIEL faxed clinicals to .
--- NOTE | 2019-08-27 15:36 | NUR ---
JAZIEL received a callback from Romeo informing JAZIEL that pt. has exhausted all his Medicare day, however pt. has Medi-johnnie from [facility]. Romeo informed JAZIEL he will check with his admitting department regarding assisting pt. in converting his Medi-johnnie to [facility] while pt. is admitted to [facility]. Romeo will call follow up with JAZIEL once he speaks with the admitting department.
--- NOTE | 2019-08-27 15:52 | NUR ---
JAZIEL received a call back from Romeo at [facility] informing SW they will accept him at [place] and will assist the pt. in converting his [facility] to [facility]. JAZIEL also called and spoke with Juan Daniel in intake at [facility] who confirmed he did receive the clinicals. JAZIEL requested him to follow up with JENNIFER Parker business information analystJENNIFER Jones in ED regarding admission.
--- NOTE | 2019-08-27 15:58 | NUR ---
Latha rag production worker came in the ER and said that patient is accepted at [facility].
[2019-08-27] MEDS ORDERED: LORAZEPAM 0.5 MG TABLET ONE (17:19)
[2019-08-27] MEDS ORDERED: LORAZEPAM 1 MG TABLET PO ONE (17:30)
--- NOTE | 2019-08-27 17:47 | NUR ---
CALLED TRANSPORT [phone] WILL NOT TRANSPORT DUE TO INSURANCE AND PT NOT BEING ON A HOLD
--- NOTE | 2019-08-27 17:54 | NUR ---
CALLED [facility] [phone] [address]
[2019-08-27 19:19] VITALS: BP 133/84
--- NOTE | 2019-08-27 20:13 | NUR ---
[facility] at bedside for transport.
--- NOTE | 2019-08-27 20:30 | NUR ---
pt left via private ambulance to [facility], given report to staff, left in stable condtion, vss, -sob
== END 2019-08-27 20:30 ==
LOC: ER 13:31
DX: F32.9 Major depressive disorder, single episode, unspecified (principal); R45.851 Suicidal ideations; F11.10 Opioid abuse, uncomplicated; I10 Essential (primary) hypertension; J44.9 Chronic obstructive pulmonary disease, unspecified; F17.210 Nicotine dependence, cigarettes, uncomplicated; F15.10 Other stimulant abuse, uncomplicated; Z59.0 Homelessness; Z86.19 Personal history of other infectious and parasitic diseases; Z79.899 Other long term (current) drug therapy
CPT/HCPCS: 36415; 80048; 80076; 80305; 80307; 80329; 81001; 85025; 99285; G0480; J7050; 81000-TC

== ENCOUNTER 2019-09-28 16:34 | Inpatient (IN) | payer MEDICARE, MEDICAID ==
[~2019-09-28] VITALS: Ht 172.7 cm; Wt 68.9 kg
--- NOTE | 2019-09-28 16:44 | NUR ---
BIBSELF C/O MID 710 CHEST PAIN RADIATING TO L ARM SINCE 1500. PT STATED CP STARTED AT 0100 BUT GOT CONSISTANT SINCE 1500. PLACED ON MONITOR AND PULSE OX. EMT AT BEDSIDE FOR EKG. VSS. AWAITING MD FOR EVAL.
--- NOTE | 2019-09-28 17:03 | NUR ---
chief underwriter at bedside for lab collection
[2019-09-28 17:16] LABS: BASOPHILS # (AUTO) 0.1 /CMM (0.0-0.2); BASOPHILS % (AUTO) 1.6 % (0.0-2.0); EOSINOPHILS % (AUTO) 1.4 % (0.0-6.0); HEMATOCRIT 41 % (39-51); HEMOGLOBIN 13.6 g/dL (13.5-17.5); LYMPHOCYTES # (AUTO) 1.7 /CMM (0.8-4.8); LYMPHOCYTES % (AUTO) 25.1 % (20.0-44.0); MEAN CORPUSCULAR HGB CONC 33 g/dl (31.0-36.0); MEAN CORPUSCULAR VOLUME 93 fL (80-96); MONOCYTES # (AUTO) 0.6 /CMM (0.1-1.30); MONOCYTES % (AUTO) 9.1 % (2.0-12.0); NEUTROPHILS # (AUTO) 4.2 /CMM (1.8-8.9); NEUTROPHILS % (AUTO) 62.8 % (43.0-81.0); PLATELET COUNT (AUTO) 264 /CMM (150-450); RED BLOOD CELL COUNT(AUTO) 4.44 MIL/uL (4.5-6.0); WHITE BLOOD COUNT (AUTO) 6.7 K/uL (4.3-11.0)
--- NOTE | 2019-09-28 17:40 | NUR ---
Certified Nuclear Medicine Technologist at bedside for second blood draw.
[2019-09-28] MEDS ORDERED: HYDROCODONE/APAP 5/325MG 1 EACH TABLET ONE (17:51)
[2019-09-28] MEDS ORDERED: ASPIRIN EC 81 MG TABLET.DR PO ONE ×2 (17:51→18:00)
[2019-09-28] MEDS ORDERED: HYDROCODONE/APAP 5/325MG 1 EACH TABLET PO ONE (18:00)
--- NOTE | 2019-09-28 18:09 | NUR ---
Patient resting in bed comfortably. VSS.
[2019-09-28 18:17] LABS: CALCIUM, SERUM 9.1 mg/dL (8.5-10.1); CARBON DIOXIDE 29 mmol/L (21-32); CHLORIDE 102 mmol/L (98-107); CREATININE 0.9 mg/dL (0.6-1.3); GLUCOSE 96 mg/dL (74-106); POTASSIUM 3.9 mmol/L (3.5-5.1); SODIUM SERUM 138 mmol/L (136-145); UREA NITROGEN, BLOOD 12 mg/dL (7-18)
[2019-09-28] MEDS ORDERED: METO25TA4 PO (18:34)
[2019-09-28] MEDS ORDERED: ASPI-1169 PO (18:35)
[2019-09-28] MEDS ORDERED: LATUDA 80 MG PO SCH (19:00)
[2019-09-28] MEDS ORDERED: ACETAMINOPHEN 325 MG TABLET PO PRN (19:00)
[2019-09-28] MEDS ORDERED: MAG HYDROX/AL HYDROX/SIMETH 30 ML UDC PO PRN (19:00)
[2019-09-28] MEDS ORDERED: ONDANSETRON HCL/PF 4 MG/2 ML VIAL IVP PRN (19:00)
[2019-09-28] MEDS ORDERED: ZOLPIDEM TARTRATE 5 MG TABLET PO PRN (19:00)
[2019-09-28] MEDS ORDERED: MAGNESIUM HYDROXIDE 30 ML UDC PO PRN (19:00)
--- NOTE | 2019-09-28 19:32 | NUR ---
BED 323-2
--- NOTE | 2019-09-28 19:41 | NUR ---
REPORT GIVEN TO BELIA RODRIGUEZ FOR SPIKE
--- NOTE | 2019-09-28 19:55 | NUR ---
PT TRANSFERED PER [facility]
[2019-09-28] MEDS: HYDROMORPHONE INJ 2 MG/ML DISP.SYRIN IV PRN ×2 (20:01→23:54)
[2019-09-28 20:22] LABS: ALBUMIN 3.4 g/dL (3.4-5.0); BILIRUBIN,TOTAL 0.4 mg/dL (0.2-1.0); TOTAL PROTEIN, SERUM 7.3 g/dL (6.4-8.2)
[2019-09-28 20:30] VITALS: BP 146/77
--- NOTE | 2019-09-28 20:30 | NUR ---
CABLE TOWER OPERATORCONCRETE FLOATER NOTES RECEIVED PATIENT FROM ER VIA [facility] ACCOMPANIED BY ER STAFF. ALERT AND ORIENTED X 3 AMBULATORY. VERBALLY RESPONSIVE AND ABLE TO FOLLOW DIRECTIONS. BREATHING REGULAR AND UNLABORED ON ROOM AIR. RIGHT FOOT G22 IV LINE INTACT AND PATENT, FLUSHING WELL WITH NO BLEEDING OR S/S OF INFILTRATION NOTED. BODY ASSESSMENT DONE, SKIN INTACT CLEAN AND DRY. INITIAL VITAL SIGNS, HEIGHT AND WEIGHT TAKEN. BELONGINGS CHECKED AND ACCOUNTED BY PATIENT. ATTACHED TO PUFF IRONER WITH NORMAL SINUS RHYTHM AT 67bpm. COMPLAINED OF 8/10 LEFT CHEST PAIN RADIATING ON THE BACK AREA, DILAUDID 1MG GIVEN VIA IV PUSH. NON-PHARMACOLOGICAL INTERVENTIONS PROVIDED. BED LOW AND LOCKED ON SEMI FOWLERS POSITION. CALL LIGHT IN REACH. WILL CONTINUE TO MONITOR.
[2019-09-28 21:00] VITALS: BP 146/77
[2019-09-28] MEDS: HYDROCODONE/APAP 5/325MG 1 EACH TABLET PO PRN (21:20)
[2019-09-28] MEDS: TAMSULOSIN 0.4 MG CAP.SR.24H PO SCH (21:20)
[2019-09-28] MEDS: LATANOPROST EYE DROP 0.005% 2.5 ML BOTTLE OP SCH (21:20)
--- NOTE | 2019-09-28 21:30 | NUR ---
INTERIOR DECORATOR PAPERHANGING NOTES COMPLAINED OF 7/10 LOWER BACK PAIN, NORCO 5/325 GIVEN BY MOUTH. VITAL SIGNS WNL. NON-PHARMACOLOGICAL INTERVENTIONS PROVIDED. WILL CONTINUE TO MONITOR.
--- NOTE | 2019-09-29 | NUR ---
INSURANCE AGENCY SALES MANAGER NOTES COMPLAINED OF 8/10 LEFT CHEST PAIN, DILAUDID 1MG GIVEN VIA IV PUSH. VITAL SIGNS WNL. NON-PHARMACOLOGICAL INTERVENTIONS PROVIDED. WILL CONTINUE TO MONITOR.
[2019-09-29 00:50] VITALS: BP 115/71
--- NOTE | 2019-09-29 01:10 | NUR ---
TRANSPORTATION ANALYST NOTES COMPLAINED OF INABILITY TO STAY ASLEEP, AMBIEN 5MG GIVEN BY MOUTH. NON-PHARMACOLOGICAL INTERVENTIONS PROVIDED. WILL CONTINUE TO MONITOR.
--- NOTE | 2019-09-29 07:25 | NUR ---
TELE/RN OPENING NOTES RECEIVED PATIENT IN BED AWAKE, ALERT AND ABLE TO MAKE NEEDS KNOWN. NO ACUTE DISTRESS AT THIS TIME. RESPIRATION EVEN AND UNLABORED. SKIN IS DRY WARM TO TOUCH. PATIENT NOTED WITH IV ACCESS ON R FOOT. INTACT AND PATENT. FLUSHING WELL. NO S/S OF INFECTION OR INFILTRATION. ALL NEEDS ANTICIPATED. CALL LIGHT WITHIN REACHED. BED LOCKED AND IN LOWEST POSITION. SAFETY MAINTAINED. PLAN OR CARE DISCUSSED WITH PATIENT. WILL CONTINUE TO MONITOR CLOSELY.
[2019-09-29 07:53] LABS: CALCIUM, SERUM 9.2 mg/dL (8.5-10.1); MAGNESIUM 2.1 mg/dL (1.8-2.4); PHOSPHORUS 4.1 mg/dL (2.5-4.9)
[2019-09-29 08:09] VITALS: BP 139/65
[2019-09-29] MEDS: HYDROMORPHONE INJ 2 MG/ML DISP.SYRIN IV PRN ×4 (08:09→20:07)
[2019-09-29] MEDS: DULOXETINE HCL 30 MG CAPSULE.DR PO SCH (08:26)
[2019-09-29] MEDS: AMLODIPINE BESYLATE 10 MG TABLET PO SCH (08:26)
[2019-09-29] MEDS: ASPIRIN 81 MG TAB.CHEW PO SCH (08:26)
[2019-09-29] MEDS: METOPROLOL SUCCINATE 25 MG TAB.SR.24H PO SCH (08:27)
[2019-09-29 08:54] LABS: BASOPHILS % (AUTO) 0.4 % (0.0-2.0); EOSINOPHILS % (AUTO) 2.3 % (0.0-6.0); HEMATOCRIT 39 % (39-51); HEMOGLOBIN 12.9 g/dL (13.5-17.5); LYMPHOCYTES # (AUTO) 2.4 /CMM (0.8-4.8); LYMPHOCYTES % (AUTO) 37.8 % (20.0-44.0); MEAN CORPUSCULAR HGB CONC 33 g/dl (31.0-36.0); MEAN CORPUSCULAR VOLUME 93 fL (80-96); MONOCYTES % (AUTO) 15.4 % (2.0-12.0); NEUTROPHILS # (AUTO) 2.8 /CMM (1.8-8.9); NEUTROPHILS % (AUTO) 44.1 % (43.0-81.0); PLATELET COUNT (AUTO) 237 /CMM (150-450); WHITE BLOOD COUNT (AUTO) 6.3 K/uL (4.3-11.0)
[2019-09-29] MEDS: HYDROCODONE/APAP 5/325MG 1 EACH TABLET PO PRN ×2 (10:00→18:35)
[2019-09-29 10:36] LABS: BAND % (MANUAL) 5 % (0.0-5.0); EOSINOPHILS % (MANUAL) 2 % (0-4); LYMPHOCYTES % (MANUAL) 30 % (16-48); MONOCYTES % (MANUAL) 17 % (0-11.0); NEUTROPHILS % (MANUAL) 46 (42-76)
[2019-09-29 13:11] VITALS: BP 149/86
--- NOTE | 2019-09-29 15:58 | NUR ---
Social service consult requested by Glenn Howell for homelessness. Pt is a 64 year old male who was admitted to [facility] for chest pain. SW met with pt at bedside. Pts belongings were at bedside. Pt appeared disheveled and was laying down in his bed. Pt is oriented x 4 (person, time, place, situation). Pt was cooperative during assessment. Pt states he is ambulatory but states sometimes I use a yan. Pt states he is currently homeless but was previously living at a board and care facility in [place]. Pt has been homeless for a couple of weeks. Pt states he does not have next of kin in the area as his family lives in [place]. Pt declined to provide an emergency contact. Pt states that he has a history of drug use. Pt reports using crystal methamphetamine and last used about 2 weeks ago. Pt states he has a history of bipolar and schizophrenia psychiatric diagnosis. Pt denies suicidal and homicidal ideation at this time. Pt denies auditory or visual hallucinations at this time. Pt is unemployed but states he receives $950 in monthly SSI benefits. Pt is interested in independent living facility. JAZIEL encouraged pt to go to a substance abuse treatment program and pt agreed. JAZIEL faxed over admissions referral to [address] [address]; , to fax [phone] attention Hospital Navigation. JAZIEL also spoke with Kain Woods, provider relations petroleum products sales representative, and he confirmed that he will be reviewing the clinicals and call back with outcome of referral. JAZIEL also provide pt with the additional following substance treatment program referrals: [facility] [address] [place] [address]; , and [facility] [address] [facility] [place] [place] [address]; . JAZIEL provided pt with fpc referrals, including the following winter shelters: [[facility]: black pickler address; [address] [place] [address]], in case pt changes motivation. The following emergency housing referrals were also provided: [facility] [address] [place] [address]; , [facility] [address] [place] [address]; , and [address] [address]; . [facility] Homeless Resources Directory and health and mental health clinic referrals were also provided. Pt will need a TAP card at discharge. Pt has signed the Homeless waiver and it has been placed in the pts chart. No other services needed at this time. SW is available if needed.
[2019-09-29 16:22] VITALS: BP 150/87
--- NOTE | 2019-09-29 18:39 | NUR ---
TELE/RN CLOSING NOTES PATIENT CONTINUES TO REMAIN IN STABLE CONDITION THROUGHOUT THE SHIFT. PROVIDED COMFORT AND SAFETY. PATIENT NOTED WITH IV ACCESS ON R FOOT. INTACT AND PATENT. FLUSHING WELL. NO S/S OF INFECTION OR INFILTRATION. ALL NEEDS ANTICIPATED. CALL LIGHT WITHIN REACHED. BED LOCKED AND IN LOWEST POSITION. SAFETY MAINTAINED. WILL CONTINUE TO MONITOR CLOSELY. ENDORSED TO PM NURSE FOR SPIKE.
--- NOTE | 2019-09-29 19:05 | NUR ---
IN PROCESSING INSTRUCTOR NOTE RECEIVED PT IN STABLE CONDITION A/O X3, CURRENTLY IN BED RESTING, NO SIGNS OF SOB OR DISTRESS, NO C/O PAIN OR N/V. TELE MONITOR READING: NSR. IV IN R FOOD #[address] S/L. ALL CURRENT NEEDS ATTENDED TO. BED LOW, LOCKED, UPPER RAILS UP, AND CALL LIGHT WITHIN REACH. WILL CONT. TO MONITOR.
[2019-09-29 20:16] VITALS: BP 128/92
[2019-09-29] MEDS: ATORVASTATIN 10 MG TABLET PO SCH (21:17)
[2019-09-29] MEDS: TAMSULOSIN 0.4 MG CAP.SR.24H PO SCH (21:17)
[2019-09-29] MEDS: LATANOPROST EYE DROP 0.005% 2.5 ML BOTTLE OP SCH (21:17)
--- NOTE | 2019-09-29 21:17 | NUR ---
BAR EXAMINER NOTE PT REFUSED PM MEDICATIONS, RISKS AND BENEFITS MADE AWARE. PT VERBALIZES UNDERSTANDING. WILL CONT. TO MONITOR.
--- NOTE | 2019-09-30 | NUR ---
HAND BOX FOLDER NOTE PT REMINDED OF NPO STATUS, WITH VERBALIZATION OF UNDERSTANDING, WILL CONT. TO MONITOR.
[2019-09-30] MEDS: HYDROMORPHONE INJ 2 MG/ML DISP.SYRIN IV PRN ×6 (00:07→22:50)
[2019-09-30 00:19] VITALS: BP 111/80
[2019-09-30 04:00] VITALS: BP 145/87
--- NOTE | 2019-09-30 04:51 | NUR ---
PPA TEACHER NOTE PT NOTED TO BE WALKING MS FLOOR, AFTER 10 MIN. PT NOTED WITH COFFEE, WHEN PT REMINDED ABOUT NPO AND NO CAFFEINE STATUS, PT STATES HE FORGOT AND APOLOGIZED. CHARGE NURSE MADE AWARE.
[2019-09-30] MEDS: HYDROCODONE/APAP 5/325MG 1 EACH TABLET PO PRN ×3 (05:34→18:26)
--- NOTE | 2019-09-30 06:15 | NUR ---
BOAT WASHER NOTE PT REMAINS IN STABLE CONDITION A/O X3, CURRENTLY WALKING AROUND MS FLOOR. NO SIGNS OF SOB OR DISTRESS, NO C/O PAIN OR N/V. TELE MONITOR READING: NS 62. IV IN R FOOD #[address] S/L. ALL CURRENT NEEDS ATTENDED TO. BED LOW, LOCKED, UPPER RAILS UP, AND CALL LIGHT WITHIN REACH. WILL CONT. TO MONITOR AND ENDORSE TO NEXT SHIFT FOR SPIKE.
--- NOTE | 2019-09-30 06:30 | NUR ---
TYPE COPYIST NOTE PT NOTED NOT IN ROOM, FLOOR ASSESSED, SECURITY CALLED, PT NOTED OUTSIDE SMOKING, ESCORTED BACK TO FLOOR BY SECURITY. RE-ENFORCED TO PT. IMPORTANCE OF STAYING ON FLOOR, AND IF WANTS TO LEAVE FLOOR THAT HE MUST BE ESCORTED BY STAFF. PT VERBALIZES UNDERSTANDING.
[2019-09-30 07:33] LABS: CALCIUM, SERUM 9.3 mg/dL (8.5-10.1); POTASSIUM 4.5 mmol/L (3.5-5.1)
[2019-09-30 07:36] LABS: BASOPHILS % (AUTO) 0.7 % (0.0-2.0); EOSINOPHILS % (AUTO) 2.4 % (0.0-6.0); HEMATOCRIT 39 % (39-51); HEMOGLOBIN 12.8 g/dL (13.5-17.5); LYMPHOCYTES % (AUTO) 27.7 % (20.0-44.0); MEAN CORPUSCULAR HGB CONC 33 g/dl (31.0-36.0); MEAN CORPUSCULAR VOLUME 92 fL (80-96); MONOCYTES # (AUTO) 0.9 /CMM (0.1-1.30); MONOCYTES % (AUTO) 12.9 % (2.0-12.0); NEUTROPHILS % (AUTO) 56.3 % (43.0-81.0); PLATELET COUNT (AUTO) 244 /CMM (150-450); RED BLOOD CELL COUNT(AUTO) 4.19 MIL/uL (4.5-6.0); WHITE BLOOD COUNT (AUTO) 7.1 K/uL (4.3-11.0)
[2019-09-30 08:00] VITALS: BP 140/82
--- NOTE | 2019-09-30 08:04 | NUR ---
RN OPENING NOTES Patient received on room air, no sob noted, patient remains a/o x3, denies pain at this time. Patient remains on tele NSR in the 60-70's. Patient remains NPO except medications at this time. R foot #22 SL. Patient has a pending myocardial stress test pending but accidentally drank coffee around 0430 in the morning. Bed at the lowest setting, call light within reach, side rails up x2.
[2019-09-30] MEDS ORDERED: REGADENOSON 0.4 MG/5 ML DISP.SYRIN IVP ONE (09:00)
[2019-09-30] MEDS: AMLODIPINE BESYLATE 10 MG TABLET PO SCH (09:07)
[2019-09-30] MEDS: METOPROLOL SUCCINATE 25 MG TAB.SR.24H PO SCH (09:07)
[2019-09-30] MEDS: ASPIRIN 81 MG TAB.CHEW PO SCH (09:07)
[2019-09-30] MEDS: DULOXETINE HCL 30 MG CAPSULE.DR PO SCH (09:09)
--- NOTE | 2019-09-30 12:39 | NUR ---
JAZIEL received a call from [facility] ([facility]) Rep, Lizzeth [phone] stating that the pt,'s referral was sent to [facility]'s Assessment & Referral Team because the pt. has Medi/Medi. Per Lizzeth, [facility] should be able to inform JAZIEL by today if pt. will be accepted. JAZIEL faxed updated Clinicals to per Lizzeth's request. JAZIEL received completed fax receipt.
[2019-09-30 16:00] VITALS: BP 122/72
--- NOTE | 2019-09-30 19:42 | NUR ---
ms pranav initial notes received report from am nurse Nano, checked pt seen in bed on sitting position resting with eyes closed with side rails x2 up and bed in low and lock in position. breathing even and non-labored not in any distress noted. kept him warm and comfortable at all times. place call light at reach. will continue monitoring.
[2019-09-30 20:00] VITALS: BP 103/68
[2019-09-30] MEDS: TAMSULOSIN 0.4 MG CAP.SR.24H PO SCH (22:40)
[2019-09-30] MEDS: ATORVASTATIN 10 MG TABLET PO SCH (22:40)
--- NOTE | 2019-09-30 22:40 | NUR ---
ms pranav notes routine meds given as ordered. pt asking for pain medication , offered norco tablet but pt refused and asking for pain shot . complaint of generalized pain , dilauidid IVP will be administered by another nurse . will continue monitoring.
[2019-09-30] MEDS: LATANOPROST EYE DROP 0.005% 2.5 ML BOTTLE OP SCH (22:42)
--- NOTE | 2019-10-01 02:12 | NUR ---
ms dry chain operator notes pt sleeping at this itme. breathing even and non-labored, not in any acute distress noted. Pt NPO at this time. will continue monitoring.
[2019-10-01] MEDS: HYDROMORPHONE INJ 2 MG/ML DISP.SYRIN IV PRN ×4 (03:05→15:47)
--- NOTE | 2019-10-01 03:05 | NUR ---
ms boilermaker central steam plant notes pt walking to the hallway and asking for his pain meds. he complaint of lower back and knee pain and saying he had surgery last year, offered norco tablet but he's refusing and insisting he wants pain shot . he also insisting to go down for smoke . i spoke to him and telling him smoking time is over and started at 8;30 am and if he's on pain he needs to stay in his room and rest instead . Pt looked at me started walking back to his room but you can see on his face that he's mad. i also remind him that he's NPO for his stress test. will continue monitoring.
[2019-10-01] MEDS: HYDROCODONE/APAP 5/325MG 1 EACH TABLET PO PRN ×2 (05:58→16:53)
--- NOTE | 2019-10-01 05:59 | NUR ---
ms night filler notes pt woke up and walked to the hallway and asking for pain meds for his abdomen. 01/21 and at this time he wants norco tablet . no n/v vomiting. he took norco with sip of water. will continue monitoring. he wants to go for smoke too but I explained to him is not smoking time yet i also told him the possible side effect of his pain medication and he's going for stress test today but pt "stated I don't care it doesn't make difference even i took my pain meds and i been taking pain meds for a long time. no chest pain noted. at this time. will continue monitoring.
[2019-10-01 06:21] LABS: BASOPHILS # (AUTO) 0.1 /CMM (0.0-0.2); EOSINOPHILS % (AUTO) 4.2 % (0.0-6.0); HEMATOCRIT 39 % (39-51); LYMPHOCYTES # (AUTO) 1.6 /CMM (0.8-4.8); LYMPHOCYTES % (AUTO) 32.4 % (20.0-44.0); MEAN CORPUSCULAR HGB CONC 34 g/dl (31.0-36.0); MEAN CORPUSCULAR VOLUME 91 fL (80-96); MONOCYTES # (AUTO) 0.7 /CMM (0.1-1.30); MONOCYTES % (AUTO) 14.4 % (2.0-12.0); NEUTROPHILS # (AUTO) 2.4 /CMM (1.8-8.9); PLATELET COUNT (AUTO) 240 /CMM (150-450); RED BLOOD CELL COUNT(AUTO) 4.24 MIL/uL (4.5-6.0)
--- NOTE | 2019-10-01 06:40 | NUR ---
ms bone puller notes pt awake and insisting to have smoke Leah /nuclear instructor accompany him to smoke. charge nurse montse aware , No signs of any discomfort noted at this time. will continue monitoring.
[2019-10-01 06:45] LABS: CALCIUM, SERUM 9.2 mg/dL (8.5-10.1); POTASSIUM 5.2 mmol/L (3.5-5.1)
--- NOTE | 2019-10-01 07:00 | NUR ---
MS SPECTROGRAPHIC ANALYST CLOSING NOTES PT BACK TO FLOOR WITH DIRECT CARE WORKER AND ASKING FOR PAIN SHOT. I TOLD HIM HE JUST HAVE HIS NORCO TABLET ONE HR AGO. AND I TOLD HIM WE WILL CHECKED HIS VITALS SIGNS FIRST AND HE WILL GO FOR STRESS TEST. I TOLD HIM WE WILL VERIFY IF ITS OK TO HAVE HIM A PAIN SHOT IF HE'S GOING FOR STRESS TEST NOW. HE STARTED SAYING BAD THINGS AND SAYING HE'S OK EVEN HE HAD PAIN SHOT .HE'S COMPLAINING OF BACK PAIN FROM HIS SURGERY A YEAR AGO . ENDORSE TO AM NURSE GUTIERREZ. CHARGE NURSE GENEVA SEGURA.
--- NOTE | 2019-10-01 07:30 | NUR ---
RN OPENING NOTES RECEIVED PATIENT WALKING IN THE HALLWAY. A/O X 4. NO SIGNS OF DISTRESS NOTED AT THIS TIME. NPO SINCE MIDNIGHT FOR STRESS TEST TODAY. IV ACCESS ON LEFT ARM #20. PATENT AND INTACT. SAFETY MEASURES IN PLACE, BED IN LOW LOCKED POSITION WITH SIDE RAILS UP X2. CALL LIGHT WITHIN REACH. WILL CONTINUE TO MONITOR.
[2019-10-01 08:00] VITALS: BP 116/77
[2019-10-01] MEDS: AMLODIPINE BESYLATE 10 MG TABLET PO SCH (08:27)
[2019-10-01] MEDS: DULOXETINE HCL 30 MG CAPSULE.DR PO SCH (08:27)
[2019-10-01] MEDS: ASPIRIN 81 MG TAB.CHEW PO SCH (08:27)
[2019-10-01] MEDS: METOPROLOL SUCCINATE 25 MG TAB.SR.24H PO SCH (09:05)
[2019-10-01 15:22] VITALS: BP 126/77
--- NOTE | 2019-10-01 16:00 | NUR ---
Discharge Update: JAZIEL called Lizzeth at [facility] [phone] to verify if patient has been accepted. Per Lizzeth, the pt. is still under [facility]. Per Lizzeth, they can admit pt. only with [facility] approval. JAZIEL called [facility] [[address] [place], [place] [id number] ] and spoke to Bridgett and relayed above stated information. Per Bridgett, JAZIEL to call [facility] [phone]. JAZIEL called [facility], and was informed that pt. must change his address to have [facility] changed to [facility]. JAZIEL and Site Supervising Technical Operator, Lenka spoke to pt. and informed him of above state information and pt. agreed to work on changing his [facility] to [facility]. Pt. expressed understanding and reluctantly agreed to go to do a Walk-in at [facility]:[phone] [[address]. [place] [address]] OR [facility] [[address] [facility] [address] ;[phone]] or call [facility] [[address] [place] [address]; [phone]]. Pt was provided with TAP card to get to desired destination. Patient provided with list of Homeless Resources and list of Winter Shelters, see other notes for details. Signed Homeless waiver form is filed in the patients chart.
--- NOTE | 2019-10-01 17:12 | NUR ---
INSOLE TAPER NOTES PATIENT DISCHARGED IN STABLE CONDITION. A/O X4. ABLE TO MAKE NEEDS KNOWN. V/S TAKEN, STABLE AND RECORDED. IV REMOVED BY THE PATIENT, IV ON THE BED. REFUSED SKIN ASSESSMENT. NAME ARM BAND REMOVED. ALL BELONGINGS CHECKED AND SIGNED. HEALTH TEACHING/DISCHARGED INSTRUCTIONS GIVEN AND VERBALIZED UNDERSTANDING. PATIENT LEFT UNIT AMBULATORY WITH NO ACUTE SIGNS OF DISTRESS. PATIENT ASSISTED TO THE LOBBY BY SECURITY AND TAP CARD WAS GIVEN. CHARGE NURSE AWARE OF DISCHARGED.
== END 2019-10-01 17:00 | disposition home or self-care (01) | DRG 206 ==
LOC: ER 16:35 → TELE 19:32 → MED 09-30 15:07
PROVIDERS: ADMIT Nurse Practitioner Acute Care; ATTEND Family Medicine
DX: M94.0 Chondrocostal junction syndrome [Tietze] (principal); J44.9 Chronic obstructive pulmonary disease, unspecified; E78.5 Hyperlipidemia, unspecified; K21.9 Gastro-esophageal reflux disease without esophagitis; I10 Essential (primary) hypertension; I25.10 Atherosclerotic heart disease of native coronary artery without angina pectoris; M48.00 Spinal stenosis, site unspecified; M79.7 Fibromyalgia; N40.0 Benign prostatic hyperplasia without lower urinary tract symptoms; Z59.0 Homelessness; F31.9 Bipolar disorder, unspecified; F17.210 Nicotine dependence, cigarettes, uncomplicated; G89.29 Other chronic pain; Z85.038 Personal history of other malignant neoplasm of large intestine; Z79.891 Long term (current) use of opiate analgesic; Z76.5 Malingerer [conscious simulation]; Z79.82 Long term (current) use of aspirin
CPT/HCPCS: 36415; 71045-TC; 80048-TC; 80061-TC; 80076-TC; 83735-TC; 84100-TC; 84484-TC; 85025-TC; 85610-TC; 85730-TC; 87081-TC; 93307-TC; A9502; G0378; J1170; J2785

== ENCOUNTER 2019-10-27 22:36 | Emergency (ER) | payer MEDICAID, MEDICARE ==
[~2019-10-27] VITALS: Ht 172.7 cm; Wt 72.6 kg
[~2019-10-27 22:36] MED LIST changes: +ASPI-1169 PO; +METO25TA4 PO; -OXYC30TA86 PO
--- NOTE | 2019-10-28 00:01 | NUR ---
BIBS. SI PLANS TO OD ON ATIVAN. -HI, DENIES HALLUCINATIONS. PLACED IN GOWN.
--- NOTE | 2019-10-28 00:02 | NUR ---
PT BELONINGS PLACED IN LOCKER.
--- NOTE | 2019-10-28 01:08 | NUR ---
PT RESTING COMFORTABLY. VSS.
[2019-10-28] MEDS ORDERED: OLANZAPINE 5 MG TABLET PO ONE (02:00)
[2019-10-28] MEDS ORDERED: OLANZAPINE 5 MG TABLET ONE (02:10)
[2019-10-28 02:11] LABS: CALCIUM, SERUM 8.7 mg/dL (8.5-10.1); CARBON DIOXIDE 30 mmol/L (21-32); CHLORIDE 104 mmol/L (98-107); CREATININE 1.1 mg/dL (0.6-1.3); GLUCOSE 88 mg/dL (74-106); POTASSIUM 3.5 mmol/L (3.5-5.1); SODIUM SERUM 140 mmol/L (136-145); UREA NITROGEN, BLOOD 14 mg/dL (7-18)
[2019-10-28 02:17] LABS: ALANINE AMINOTRANSFERASE 44 U/L (12-78); ALBUMIN 3.4 g/dL (3.4-5.0); ALCOHOL, BLOOD < 3 mg/dL (0-0); ALKALINE PHOSPHATASE 93 U/L (46-116); ASPARTATE AMINOTRANSFERASE 75 U/L (15-37); BILIRUBIN,DIRECT 0.2 mg/dL (0.0-0.2); BILIRUBIN,TOTAL 0.9 mg/dL (0.2-1.0)
[2019-10-28 02:23] LABS: ACETAMINOPHEN 0 ug/ml (10-30); BASOPHILS # (AUTO) 0.1 /CMM (0.0-0.2); BASOPHILS % (AUTO) 1.1 % (0.0-2.0); EOSINOPHILS % (AUTO) 2.9 % (0.0-6.0); HEMATOCRIT 36 % (39-51); HEMOGLOBIN 12.1 g/dL (13.5-17.5); LYMPHOCYTES # (AUTO) 1.6 /CMM (0.8-4.8); LYMPHOCYTES % (AUTO) 32.9 % (20.0-44.0); MEAN CORPUSCULAR HGB CONC 33 g/dl (31.0-36.0); MEAN CORPUSCULAR VOLUME 92 fL (80-96); MONOCYTES # (AUTO) 0.5 /CMM (0.1-1.30); MONOCYTES % (AUTO) 11.4 % (2.0-12.0); NEUTROPHILS # (AUTO) 2.5 /CMM (1.8-8.9); NEUTROPHILS % (AUTO) 51.7 % (43.0-81.0); PLATELET COUNT (AUTO) 268 /CMM (150-450); RED BLOOD CELL COUNT(AUTO) 3.93 MIL/uL (4.5-6.0); SALICYLATE < 0.2 mg/dL (2.8-20.0); WHITE BLOOD COUNT (AUTO) 4.7 K/uL (4.3-11.0)
--- NOTE | 2019-10-28 02:25 | NUR ---
Patient is resting comfortably in bed with eyes closed. Easily aroused. VSS.
[2019-10-28 04:05] LABS: APPEARANCE,URINE Clear (CLEAR); BILIRUBIN,URINE SMALL (NEGATIVE); BLOOD, URINE Negative Ery/uL (NEGATIVE); COLOR,URINE Dark (YELLOW); KETONES,URINE Trace (NEGATIVE); LEUKOCYTE ESTERASE ,URINE Negative (NEGATIVE); NITRITE, URINE Negative (NEGATIVE); PROTEIN,URINE Negative (NEGATIVE); UGLUCOSE Negative (NEGATIVE)
--- NOTE | 2019-10-28 04:16 | NUR ---
PT ASLEEP, EASLIY AROUSABLE, NO ACUTE DISTRESS NOTED. RESP EVEN AND UNLABORED. CALL LIGHT WITHIN REACH. SITTER REMAINS AT BEDSIDE FOR PT SAFETY.
--- NOTE | 2019-10-28 05:00 | NUR ---
PATIENT RESTING COMFORTABLY IN BED. NOT IN ANY DISTRESS. SITTER AT BEDSIDE. VITAL SIGNS ARE STABLE.
--- NOTE | 2019-10-28 06:10 | NUR ---
CLINICAL FAXED TO [facility] FOR VOLUMTARY ADMISSION.
--- NOTE | 2019-10-28 06:26 | NUR ---
SHASHANK FROM [facility] INTAKE CALLED TO INFORM THAT PT DOES NOT HAVE ANY MEDICARE DAYS REMAINING. PT' S MEDI-MARSHALL IS ASSIGNED TO [facility]. PT CANNOT BE ADMITTED AT THIS TIME FOR INPATIENT.
--- NOTE | 2019-10-28 08:10 | NUR ---
patient in bed, in no distress, calm, patient states "i am not suicidal". MD made aware and spoke to the patient.
[2019-10-28 08:51] VITALS: BP 128/64
--- NOTE | 2019-10-28 08:55 | NUR ---
Patient given written and verbal discharge instructions. Patient verbalizes understanding of instructions. Patient is ambulatory with steady gait. Refuses offer of fci placement. Patient given list of available shelters in surrounding area.
== END 2019-10-28 08:55 | disposition home or self-care (01) ==
LOC: ER 22:37
DX: F32.9 Major depressive disorder, single episode, unspecified (principal); R45.851 Suicidal ideations; I10 Essential (primary) hypertension; M48.00 Spinal stenosis, site unspecified; M79.7 Fibromyalgia; F17.210 Nicotine dependence, cigarettes, uncomplicated; Z86.19 Personal history of other infectious and parasitic diseases; Z98.890 Other specified postprocedural states; Z88.6 Allergy status to analgesic agent; Z59.0 Homelessness; Z79.82 Long term (current) use of aspirin; Z79.899 Other long term (current) drug therapy; Z60.2 Problems related to living alone
CPT/HCPCS: 36415; 80048; 80076; 80305; 80307; 80329; 81001; 85025; 99284; G0480; 81000-TC

== ENCOUNTER 2020-03-14 20:16 | Emergency (ER) | payer MEDICARE, OTHER ==
[~2020-03-14] VITALS: Ht 170.2 cm; Wt 70.3 kg
[2020-03-14 20:42] VITALS: BP 166/96
[2020-03-14] MEDS ORDERED: IBUPROFEN 600 MG TABLET PO ONE ×2 (21:00→21:02)
--- NOTE | 2020-03-14 21:08 | NUR ---
PT REFUSED MEDICATION AND LEFT. PT REFUSED TREATMENT. NOTIFIED.
== END 2020-03-14 21:09 | disposition left against medical advice (07) ==
LOC: ER 20:18
DX: M25.522 Pain in left elbow (principal); I10 Essential (primary) hypertension; M79.7 Fibromyalgia; F17.210 Nicotine dependence, cigarettes, uncomplicated; Z85.038 Personal history of other malignant neoplasm of large intestine; Z86.19 Personal history of other infectious and parasitic diseases; Z98.890 Other specified postprocedural states; Z88.5 Allergy status to narcotic agent; Z59.0 Homelessness; Z60.2 Problems related to living alone; Z79.82 Long term (current) use of aspirin; Z79.899 Other long term (current) drug therapy

== ENCOUNTER 2021-04-14 22:46 | Inpatient (IN) | payer MEDICARE, OTHER ==
[~2021-04-14] VITALS: Ht 172.7 cm; Wt 67.1 kg
--- NOTE | 2021-04-14 22:55 | NUR ---
Pt bibra c/o cp x2hrs today. pt aaox4 breathing evebly and unlabored. Pt was given 325mg en route and also took viagra today. Pt attached to monitor and pox. Pt has rt forearm 20g iv initated. Skin warm, dry, and intact. Will continue to monitor
--- NOTE | 2021-04-14 23:10 | NUR ---
xray at bedside
[2021-04-14] MEDS ORDERED: ASPIRIN 325 MG TABLET PO ONE (23:30)
[2021-04-15] MEDS ORDERED: ASPIRIN 325 MG TABLET ONE (00:29)
[2021-04-15 00:31] LABS: BASOPHILS % (AUTO) 0.7 % (0.0-2.0); EOSINOPHILS % (AUTO) 1.3 % (0.0-6.0); HEMATOCRIT 44 % (39-51); HEMOGLOBIN 14.4 g/dL (13.5-17.5); LYMPHOCYTES % (AUTO) 38.7 % (20.0-44.0); MEAN CORPUSCULAR HGB CONC 32 g/dl (31.0-36.0); MEAN CORPUSCULAR VOLUME 94 fL (80-96); MONOCYTES # (AUTO) 0.6 K/uL (0.1-1.30); MONOCYTES % (AUTO) 11.7 % (2.0-12.0); NEUTROPHILS # (AUTO) 2.5 K/uL (1.8-8.9); NEUTROPHILS % (AUTO) 47.6 % (43.0-81.0); PLATELET COUNT (AUTO) 254 K/uL (150-450); RED BLOOD CELL COUNT(AUTO) 4.74 MIL/uL (4.5-6.0); WHITE BLOOD COUNT (AUTO) 5.2 K/uL (4.3-11.0)
[2021-04-15] MEDS ORDERED: IBUPROFEN 400 MG TABLET ONE (00:48)
[2021-04-15] MEDS ORDERED: IBUPROFEN 400 MG TABLET PO ONE (01:00)
[2021-04-15 01:11] LABS: CALCIUM, SERUM 8.8 mg/dL (8.5-10.1); CARBON DIOXIDE 24 mmol/L (21-32); CHLORIDE 100 mmol/L (98-107); CREATININE 0.8 mg/dL (0.6-1.3); GLUCOSE 86 mg/dL (74-106); POTASSIUM 4.3 mmol/L (3.5-5.1); SODIUM SERUM 130 mmol/L (136-145); UREA NITROGEN, BLOOD 11 mg/dL (7-18)
[2021-04-15 01:17] LABS: ALKALINE PHOSPHATASE 93 U/L (46-116); ASPARTATE AMINOTRANSFERASE 47 U/L (15-37); BILIRUBIN,TOTAL 0.7 mg/dL (0.2-1.0); TOTAL PROTEIN, SERUM 7.6 g/dL (6.4-8.2)
[2021-04-15 01:29] LABS: ALBUMIN 2.9 g/dL (3.4-5.0); BILIRUBIN,DIRECT 0.1 mg/dL (0.0-0.2)
[2021-04-15 01:32] LABS: ALANINE AMINOTRANSFERASE 31 U/L (12-78)
--- NOTE | 2021-04-15 01:38 | NUR ---
CALLED NURSING SUP FOR TELE BED
[2021-04-15] MEDS ORDERED: MAGNESIUM HYDROXIDE 30 ML UDC PO PRN (02:00)
[2021-04-15] MEDS ORDERED: ENOXAPARIN SODIUM 40 MG/0.4 ML DISP.SYRIN SQ SCH (02:00)
[2021-04-15] MEDS ORDERED: ONDANSETRON HCL/PF 4 MG/2 ML VIAL IVP PRN (02:00)
[2021-04-15] MEDS ORDERED: NITROGLYCERIN 0.4 MG/TAB BOTTLE SL PRN (02:00)
[2021-04-15] MEDS ORDERED: ACETAMINOPHEN 325 MG TABLET PO PRN (02:00)
[2021-04-15] MEDS ORDERED: ZOLPIDEM TARTRATE 5 MG TABLET PO PRN (02:00)
[2021-04-15] MEDS ORDERED: Z GUARD REMEDY 2 OZ OINT TP PRN (02:00)
--- NOTE | 2021-04-15 02:10 | NUR ---
gave report to JENNIFER Da Silva for elier
[2021-04-15 02:30] VITALS: BP 139/90
--- NOTE | 2021-04-15 02:30 | NUR ---
TELERN FULLY AWAKE, RECEIVED FROM ER VIA [employer] OF NON RADIATING CP SCALE OF 8/10. NSR ON THE MONITOR, VITAL SIGNS STABLE. WILL CALL MD. ABLE TO PROVIDE ADM INFORMATION. NO SOB, REFUSED LOVENOX. ORIENTED TO ROOM FACILITY, DISCUSS WITH PATIENT MEDICATION REGIMEN AND PLAN OF CARE. APPEARS TO UNDERSTAND. CALL LIGHT USE INSTRUCTED, SAFETY PRECAUTIONS EMPHASIZED. MONITORED.
--- NOTE | 2021-04-15 02:46 | NUR ---
TELERN PAIN MED DILAUDED 1 MG IVP ONE TIME ORDER RECEIVED.
[2021-04-15 03:00] VITALS: BP 139/90
[2021-04-15] MEDS ORDERED: HYDROMORPHONE 1 MG/1 ML DISP.SYRIN IV ONE (03:00)
--- NOTE | 2021-04-15 03:40 | NUR ---
TELERN DILAUDED 1MG IVP ADMINISTERED X1 DOSE ONLY PER MD FOR CP AND LOWER BACK PAIN . BEDREST INSTRUCTED. REMAINS NSR ON THE MONITOR. CLOSELY WATCHED.
--- NOTE | 2021-04-15 07:00 | NUR ---
TELERN SEEN BY DR. GARNETT. PAIN FREE FOR NOW. STABLE. ENDORSED TO INCOMING RN
[2021-04-15 08:00] VITALS: BP 142/89
[2021-04-15 08:22] VITALS: BP 142/89
[2021-04-15] MEDS ORDERED: HYDROMORPHONE INJ 2 MG/ML DISP.SYRIN IV PRN ×2 (08:30→09:30)
[2021-04-15] MEDS ORDERED: ASPIRIN 81 MG TAB.CHEW PO SCH (09:00)
[2021-04-15] MEDS ORDERED: AMLODIPINE BESYLATE 10 MG TABLET PO SCH (09:00)
[2021-04-15] MEDS ORDERED: DULOXETINE HCL 30 MG CAPSULE.DR PO SCH (09:00)
[2021-04-15] MEDS ORDERED: METOPROLOL SUCCINATE 25 MG TAB.SR.24H PO SCH (09:00)
[2021-04-15 09:22] LABS: ALBUMIN 3.9 g/dL (3.4-5.0); BILIRUBIN,TOTAL 0.7 mg/dL (0.2-1.0); CALCIUM, SERUM 9.1 mg/dL (8.5-10.1); CREATININE 0.9 mg/dL (0.6-1.3); MAGNESIUM 2.2 mg/dL (1.8-2.4); PHOSPHORUS 3.5 mg/dL (2.5-4.9); POTASSIUM 4.2 mmol/L (3.5-5.1); TOTAL PROTEIN, SERUM 7.8 g/dL (6.4-8.2)
[2021-04-15] MEDS ORDERED: HYDROMORPHONE MDV 2 MG in IV D5W 50 ML IV PRN (09:30)
[2021-04-15] MEDS ORDERED: oxyCODONE HCL SR 20MG TAB.SR.12H PO PRN (10:30)
--- NOTE | 2021-04-15 11:59 | NUR ---
Received report at bedside from NOC RN. Pt A/O X4, VSS, gait steady, SR via 5-lead youth nutritional monitor. Pt c/o pain in his back, head, chest, and shoulders 8-06/23. Dr Saeed and [facility] notified, as pt received a one-time dose of dilaudid on NOC shift but otherwise pt only had tylenol ordered as a prn pain medication. Pt stated he could not take the tylenol becauseof his liver and Hep C status. CHI Baeza ordered pt prn dilaudid per pt's request. Pt also a smoker and has left unit many times to go outside and smoke despite RN educating pt on need to quit smoking Pt decided to leave AMA at 1130am and [facility] notified. Pt had been scheduled for a CT Angio with contrast as well as a 2D Echo (now cancelled). Pt's IV access and tele box removed prior to pt leaving hospital.
[2021-04-15] MEDS ORDERED: METOPROLOL TARTRATE 50 MG TABLET PO SCH (12:00)
[2021-04-15] MEDS ORDERED: BIMATOPROST 2.5 ML DROPS OP SCH (22:00)
[2021-04-15] MEDS ORDERED: TAMSULOSIN 0.4 MG CAP.SR.24H PO SCH (22:00)
--- NOTE | 2021-04-18 09:28 | NUR ---
SS consult requested over the weekend. Pt. has departed.
== END 2021-04-15 11:28 | disposition left against medical advice (07) | DRG 303 ==
LOC: ER 22:48 → TELE 04-15 01:47
PROVIDERS: ADMIT Nurse Practitioner Acute Care; ATTEND Nurse Practitioner Acute Care
DX: I25.10 Atherosclerotic heart disease of native coronary artery without angina pectoris (principal); E87.1 Hypo-osmolality and hyponatremia; E44.0 Moderate protein-calorie malnutrition; I10 Essential (primary) hypertension; Z79.899 Other long term (current) drug therapy; Z85.038 Personal history of other malignant neoplasm of large intestine; M79.7 Fibromyalgia; M48.00 Spinal stenosis, site unspecified; K21.9 Gastro-esophageal reflux disease without esophagitis; B19.20 Unspecified viral hepatitis C without hepatic coma; H40.9 Unspecified glaucoma; Z98.890 Other specified postprocedural states; Z88.5 Allergy status to narcotic agent; Z79.82 Long term (current) use of aspirin; F31.9 Bipolar disorder, unspecified; Z72.0 Tobacco use; E78.5 Hyperlipidemia, unspecified; G89.29 Other chronic pain; N40.0 Benign prostatic hyperplasia without lower urinary tract symptoms; J44.9 Chronic obstructive pulmonary disease, unspecified; I70.0 Atherosclerosis of aorta; Z59.0 Homelessness
CPT/HCPCS: 36415; 71045-TC; 80048-TC; 80053-TC; 80076-TC; 83735-TC; 84100-TC; 84484-TC; 85025-TC; 87081-TC; 93307-TC; C9803; G0378; J1170; J1650

== ENCOUNTER 2021-10-16 21:10 | Emergency (ER) | payer MEDICARE, OTHER ==
[~2021-10-16] VITALS: Ht 172.7 cm; Wt 68.0 kg
--- NOTE | 2021-10-17 00:14 | NUR ---
URINE COLLECTED AND SENT TO LAB
--- NOTE | 2021-10-17 00:15 | NUR ---
PT BIBS FOR C/O SI, REQUESTING VOLUNTARY PSYCH ADMISSION. PT A/OX3. TOLERATING R/A WELL WITH NO SOB. SAFETY 1:[address]
[2021-10-17] MEDS ORDERED: ASPIRIN 81 MG TAB.CHEW PO ONE (00:30)
[2021-10-17] MEDS ORDERED: HYDROCODONE/APAP 10/325MG TABLET PO ONE ×2 (00:30→04:00)
[2021-10-17] MEDS ORDERED: NITROGLYCERIN PACKET 1 GM PACKET TD ONE (00:30)
[2021-10-17] MEDS ORDERED: NITROGLYCERIN PACKET 1 GM PACKET ONE (00:34)
[2021-10-17] MEDS ORDERED: ASPIRIN 81 MG TAB.CHEW ONE (00:34)
[2021-10-17] MEDS ORDERED: HYDROCODONE/APAP 10/325MG TABLET ONE ×2 (00:34→04:03)
--- NOTE | 2021-10-17 00:38 | NUR ---
REFUSED NITRO . REPORTED "I USED VIAGRA YESTERDAY". MADE AWARE
--- NOTE | 2021-10-17 00:57 | NUR ---
BELT REPAIRER AT PT'S BEDSIDE
[2021-10-17 01:07] LABS: BILIRUBIN,URINE NEGATIVE (NEGATIVE); COLOR,URINE YELLOW (YELLOW); LEUKOCYTE ESTERASE ,URINE NEGATIVE (NEGATIVE); NITRITE, URINE NEGATIVE (NEGATIVE); PROTEIN,URINE NEGATIVE (NEGATIVE); UGLUCOSE NEGATIVE (NEGATIVE); UROBILINOGEN,URINE 0.2 EU/dL (0.2)
[2021-10-17 01:27] LABS: CALCIUM, SERUM 9.4 mg/dL (8.5-10.1); CARBON DIOXIDE 28 mmol/L (21-32); CHLORIDE 95 mmol/L (98-107); CREATININE 0.9 mg/dL (0.6-1.3); GLUCOSE 67 mg/dL (74-106); POTASSIUM 3.8 mmol/L (3.5-5.1); SODIUM SERUM 132 mmol/L (136-145); UREA NITROGEN, BLOOD 21 mg/dL (7-18)
[2021-10-17 01:32] LABS: ALANINE AMINOTRANSFERASE 31 U/L (12-78); ALCOHOL, BLOOD < 3 mg/dL (0-0); ALKALINE PHOSPHATASE 98 U/L (46-116); ASPARTATE AMINOTRANSFERASE 27 U/L (15-37); BILIRUBIN,DIRECT 0.1 mg/dL (0.0-0.2); BILIRUBIN,TOTAL 0.7 mg/dL (0.2-1.0); TOTAL PROTEIN, SERUM 8.5 g/dL (6.4-8.2)
[2021-10-17 01:36] LABS: BASOPHILS % (AUTO) 0.7 % (0.0-2.0); EOSINOPHILS % (AUTO) 1.7 % (0.0-6.0); HEMATOCRIT 43 % (39-51); HEMOGLOBIN 14.5 g/dL (13.5-17.5); LYMPHOCYTES # (AUTO) 1.4 K/uL (0.8-4.8); LYMPHOCYTES % (AUTO) 23.5 % (20.0-44.0); MEAN CORPUSCULAR HGB CONC 34 g/dl (31.0-36.0); MEAN CORPUSCULAR VOLUME 96 fL (80-96); MONOCYTES # (AUTO) 0.7 K/uL (0.1-1.30); NEUTROPHILS # (AUTO) 3.6 K/uL (1.8-8.9); NEUTROPHILS % (AUTO) 62.1 % (43.0-81.0); PLATELET COUNT (AUTO) 269 K/uL (150-450); RED BLOOD CELL COUNT(AUTO) 4.48 MIL/uL (4.5-6.0); WHITE BLOOD COUNT (AUTO) 5.8 K/uL (4.3-11.0)
[2021-10-17 01:39] LABS: ACETAMINOPHEN 0 ug/ml (10-30)
[2021-10-17] MEDS ORDERED: HYDROMORPHONE HCL 2 MG TABLET ONE (01:41)
[2021-10-17] MEDS ORDERED: HYDROMORPHONE HCL 2 MG TABLET PO PRN (02:00)
[2021-10-17] MEDS ORDERED: HYDR-3980 PO (04:42)
[2021-10-17] MEDS ORDERED: LURA80TA PO (04:42)
--- NOTE | 2021-10-17 04:50 | NUR ---
PT IS MEDICALLY STABLE FOR D/C . DENIED SI/ HI. AMBULATORY W/ STEADY GAITS. Patient discharged to home in stable condition. Rx and Written and verbal after care instructions given. Patient verbalizes understanding of instruction.
[2021-10-17 04:52] VITALS: BP 122/76
== END 2021-10-17 04:55 | disposition home or self-care (01) ==
LOC: ER 21:20
DX: R07.9 Chest pain, unspecified (principal); Z59.00 Homelessness unspecified; R91.8 Other nonspecific abnormal finding of lung field; R79.1 Abnormal coagulation profile; Z20.822 Contact with and (suspected) exposure to COVID-19; F17.210 Nicotine dependence, cigarettes, uncomplicated; Z79.899 Other long term (current) drug therapy; Z90.49 Acquired absence of other specified parts of digestive tract; F31.9 Bipolar disorder, unspecified; H40.9 Unspecified glaucoma; M79.7 Fibromyalgia; Z85.038 Personal history of other malignant neoplasm of large intestine; Z86.19 Personal history of other infectious and parasitic diseases; J44.9 Chronic obstructive pulmonary disease, unspecified
CPT/HCPCS: 36415; 71045-TC; 80048-TC; 80076-TC; 83880; 84484-TC; 85025-TC; 85378-TC; C9803; G0480

== ENCOUNTER 2021-11-01 05:38 | Inpatient (IN) | payer MEDICARE ==
[~2021-11-01] VITALS: Ht 172.7 cm; Wt 59.0 kg
[~2021-11-01 05:38] MED LIST changes: +HYDR-3980 PO
--- NOTE | 2021-11-01 07:15 | NUR ---
GPS ADMISSION NOTES ADMITTED A 66 Y/O, MALE, FROM [facility]. ON 5150 HOLD, PER HOLD, PT. IS DISORGANIZED, CONFUSED, REPORTS HE IS SUICIDAL AND UNABLE TO COMMUNICATE A PLAN OF CARE OR SAFETY FOR HIMSELF. UPON FACE TO FACE ASSESSMENT, PATIENT IS A&OX3, PATIENT IS ANXIOUS, RESTLESS, DEMANDING, NEEDY, GUARDED, PT VERBALIZED HE HAS FEELINGS OF HURTING HIMSELF. SEEN AND EVALUATED BY [facility]I SANZ. PATIENT IS HAVING HALLUCINATION PATIENT STATES HE HEARS VOICES TELLING HIM "I AM GOING TO ". REORIENTATION PROVIDED. CHI PATEL MADE AWARE OF PT'S ADMISSION AND MED RECON NEEDS TO BE DONE. BELONGINGS WERE INVENTORIED AND CHECKED FOR CONTRABAND. PATIENT REFUSED TO SIGN THE ADMISSION PAPERS, PT. STATED "I'M EXHAUSTED". PT REFUSED SKIN BODY ASSESSMENT. PT IS A SMOKER. NICOTINE PATCH WAS OFFERED BUT PT REFUSED. SMOKING CESSATION ENCOURAGED. REFUSED FLU AND PNEUMONIA VACCINATION WELL PT STATED, "I DON'T NEED IT". PT. RIGHTS DISCUSSED BY ASSET PROTECTION AGENT, PT'S HANDBOOK AND MEDICATIONS GUIDE PROVIDED. SAFETY PRECAUTIONS IN PLACE. WILL CONTINUE TO MONITOR Q15MIN ROUNDS FOR SAFETY AND BEHAVIOR.
[2021-11-01 07:28] VITALS: BP 124/73
[2021-11-01] MEDS ORDERED: MAG HYDROX/AL HYDROX/SIMETH 30 ML UDC PO PRN (07:30)
[2021-11-01] MEDS ORDERED: TEMAZEPAM 7.5 MG CAPSULE PO PRN (07:30)
[2021-11-01] MEDS ORDERED: ACETAMINOPHEN 325 MG TABLET PO PRN (07:30)
[2021-11-01] MEDS ORDERED: clonazePAM 0.5 MG TABLET PO PRN (07:30)
[2021-11-01] MEDS ORDERED: BLOOD SUGAR DIAGNOSTIC 1 EACH STRIP IN ONE (07:30)
[2021-11-01] MEDS ORDERED: MAGNESIUM HYDROXIDE 30 ML UDC PO PRN (07:30)
--- NOTE | 2021-11-01 07:38 | NUR ---
RN NOTES: PT. REFUSED INTIALLY BLOOD SUGAR CHECK , AND PT. REFUSED SKIN ASSESSMNT ENCOURAGED X3 , PT. STRONGLY REFUSED PER PT. [place] SKIN IS FINE , PT. BEHAVIOR VERY UNCOOPERTIVE PARANOID AGGRESSIVE AT THIS TIME , AND PT. REFUSED FACE PHOTO TAKEN . WILL ENDORSE TO AM NURSE.
--- NOTE | 2021-11-01 07:43 | NUR ---
RN NOTES: PT. REFUSED INTIALLY BLOOD SUGAR CHECK , AND PT. REFUSED SKIN ASSESSMNT ENCOURAGED X3 , PT. STRONGLY REFUSED PER PT. MY SKIN IS FINE , PT. BEHAVIOR VERY UNCOOPERTIVE PARANOID AGGRESSIVE AT THIS TIME , AND PT. REFUSED FACE PHOTO TAKEN . WILL ENDORSE TO AM NURSE.
[2021-11-01 08:00] VITALS: BP 124/73
[2021-11-01] MEDS ORDERED: HYDR-3980 PO (08:48)
[2021-11-01] MEDS ORDERED: LORA-259 PO (08:48)
[2021-11-01] MEDS ORDERED: ALBU8.5H8 IH (08:48)
[2021-11-01] MEDS ORDERED: HYDR4TAB4 PO (08:48)
[2021-11-01] MEDS ORDERED: GABA-532 PO (08:48)
[2021-11-01] MEDS: OLANZAPINE 2.5 MG TABLET PO SCH ×2 (09:23→21:36)
[2021-11-01] MEDS: DULOXETINE HCL 30 MG CAPSULE.DR PO SCH (09:23)
--- NOTE | 2021-11-01 09:53 | NUR ---
KLONOPIN 0.5MG GIVEN FOR ANXIETY. WILL CONTINUE TU MONITOR.
--- NOTE | 2021-11-01 11:30 | NUR ---
GPS NOTES 11:30 PAGED EPIC GROUP [facility] PATEL REGARDING MEDICATION NEEDS TO BE RECONCILED. AWAITING FOR CALL BACK. 2:48 FOLLOWED UP CALL MADE TO [facility]. AWAITING RESPONSE. DAREN MAGANA RN MADE AWARE
--- NOTE | 2021-11-01 11:48 | NUR ---
JAZIEL Initial Discharge: Pt. is homeless and will need possible placement at facility. Pt. does not have any supportive contact at this time. SW will work with the pt and MD to coordinate appropriate discharges.
--- NOTE | 2021-11-01 11:59 | NUR ---
Social Work Note/Substance Abuse Intervention: Patient was provided with a brief substance abuse intervention and referred to [facility] ([phone]), [facility] ([phone]), and [facility] ([phone]) for smoking and drinking alcohol.
--- NOTE | 2021-11-01 12:01 | NUR ---
Treatment Plan: Pt refused to sign treatment plan due to aggressive behavior.
[2021-11-01] MEDS ORDERED: ALBUTEROL FS 2.5 MG/0.5 ML VIAL.NEB IH PRN (15:30)
[2021-11-01 16:00] VITALS: BP 116/75
[2021-11-01] MEDS: GABAPENTIN 100 MG CAPSULE PO SCH (16:07)
[2021-11-01 20:36] VITALS: BP 132/78
[2021-11-01 20:42] VITALS: BP 132/78
[2021-11-01] MEDS: LATANOPROST EYE DROP 0.005% 2.5 ML BOTTLE OP SCH (21:18)
--- NOTE | 2021-11-01 21:18 | NUR ---
RN NOTE XALATAN OPTH TREVOR 1 DROP EACH EYE WAS ADMINISTERED ORDERED BUT WHEN SCANNED THE MEDICATION, IT ONLY SHOWS ML INSTEAD OF DROP, UNABLE TO CHANGE ML TO DROP MANUALLY WHEN SCANNED THE MEDICATION BUT 1 DROP OF XALATAN OPTH TREVOR WAS ADMINISTERED TO EACH EYE ORDERED UNDER LABEL INSTRUCTIONS.
[2021-11-01] MEDS: TAMSULOSIN 0.4 MG CAP.SR.24H PO SCH (21:36)
--- NOTE | 2021-11-02 01:05 | NUR ---
RN NOTE: REFUSED URINE SPECIMEN PATIENT WAS REMINDED TO COLLECT URINE SPECIMEN BUT PATIENT REFUSED TO COOPERATE WHEN HE USED THE TOILET. PATIENT REMOVED THE URINE COLLECTION HAT FROM THE TOILET, REFUSED TO USE THE URINAL WELL. PATIENT BECAME IRRITABLE, ANXIOUS AND AGITATED WHEN REDIRECTED. PATIENT WENT BACK TO HIS BED AND WANTED THE NURSE NOT TO BOTHER HIM. PATIENT IS UNCOOPERATIVE WITH URINE COLLECTION AT THIS TIME. WILL TRY AGAIN LATER AND WILL ENDORSE TO AM RN IF GROOMING SALON MANAGER IS UNABLE TO COLLECT URINE SPECIMEN DUE TO PATIENT'S UNCOOPERATIVE BEHAVIOR.
--- NOTE | 2021-11-02 03:37 | NUR ---
RN NOTE URINE SPECIMEN COLLECTED AND WILL BE SENT TO LAB.
--- NOTE | 2021-11-02 05:11 | NUR ---
RN NOTE: REFUSED AM LABS PATIENT REFUSED AM LABS AT THIS TIME DESPITE OF ENCOURAGEMENT AND RISK/BENEFIT EXPLANATIONS, BUT PATIENT CONTINUED TO REFUSE. PATIENT WANTED THE PHYSICIAN RELATIONS SPECIALIST TO COME BACK LATER. URINE SPECIMEN WAS PICKED UP BY THE PHYSICIAN RELATIONS SPECIALIST.
[2021-11-02 06:28] LABS: BILIRUBIN,URINE NEGATIVE (NEGATIVE); COLOR,URINE YELLOW (YELLOW); LEUKOCYTE ESTERASE ,URINE NEGATIVE (NEGATIVE); NITRITE, URINE NEGATIVE (NEGATIVE); PROTEIN,URINE NEGATIVE (NEGATIVE); UGLUCOSE NEGATIVE (NEGATIVE); UROBILINOGEN,URINE 0.2 EU/dL (0.2)
[2021-11-02 08:00] VITALS: BP 145/73
[2021-11-02] MEDS: ASPIRIN 81 MG TAB.CHEW PO SCH (08:17)
[2021-11-02] MEDS: OLANZAPINE 2.5 MG TABLET PO SCH ×2 (08:17→21:44)
[2021-11-02] MEDS: GABAPENTIN 100 MG CAPSULE PO SCH ×4 (08:18→16:38)
[2021-11-02] MEDS: DULOXETINE HCL 30 MG CAPSULE.DR PO SCH (08:18)
[2021-11-02] MEDS: AMLODIPINE BESYLATE 10 MG TABLET PO SCH ×2 (08:19→08:25)
[2021-11-02] MEDS: METOPROLOL SUCCINATE 25 MG TAB.SR.24H PO SCH ×2 (08:20→08:25)
--- NOTE | 2021-11-02 08:32 | NUR ---
SW Family Contact: SW attempted to contact patient's niece Halima ([phone]) and number was unavailable. SW attempted to contact daughter Spencer ([phone], ) and number was unavailable.
[2021-11-02 15:49] LABS: BILIRUBIN,TOTAL 0.7 mg/dL (0.2-1.0); CALCIUM, SERUM 8.9 mg/dL (8.5-10.1); CREATININE 0.9 mg/dL (0.6-1.3); TOTAL PROTEIN, SERUM 6.5 g/dL (6.4-8.2)
[2021-11-02 15:51] LABS: CHOLESTEROL 123 mg/dL (<200); HDL CHOLESTEROL 71 mg/dL (40-60); LDL 53 mg/dL (0-99); TRIGLYCERIDES 33 mg/dL (30-150)
[2021-11-02 16:00] VITALS: BP 123/65
--- NOTE | 2021-11-02 16:39 | NUR ---
Pt. refused to take Gabapentin po and said it's not helping on him.
[2021-11-02] MEDS: ENSURE ENLIVE CHOC 237 ML CAN PO SCH (17:22)
[2021-11-02 20:00] VITALS: BP 125/61
[2021-11-02] MEDS: TAMSULOSIN 0.4 MG CAP.SR.24H PO SCH (21:38)
[2021-11-02] MEDS: LATANOPROST EYE DROP 0.005% 2.5 ML BOTTLE OP SCH (21:42)
--- NOTE | 2021-11-02 21:45 | NUR ---
GPS RN NOTES: PATIENT REFUSED ZYPREXA 2.5MG PO ORDERED. PER PATIENT "I DON'T WANT IT". EDUCATION PROVIDED ON THE IMPORTANCE OF MEDICATION COMPLIANCE, REINFORCEMENT NEEDED. WILL CONTINUE TO MONITOR.
--- NOTE | 2021-11-02 22:09 | NUR ---
GPS RN NOTE, PATIENT HAS A COMPLAINT OF FEELING ANXIOUS AND IS REQUESTING FOR ATIVAN AND DOES NOT WANT HIS PRESCRIBED KLONOPIN. PAGED [facility] NP AND INFORMED HER OF MY FINDINGS. [facility] NP ORDERED TO DISCONTINUE KLONOPIN 0.5MG PO Q4HR PRN AND ORDERED ATIVAN 0.5MG PO Q6HR PRN. ALL ORDERS NOTED AND CARRIED OUT WILL CONTINUE TO MONITOR THIS PATIENT WITH THE HELP OF STAFF.
[2021-11-03 08:00] VITALS: BP 123/79
[2021-11-03] MEDS: ENSURE ENLIVE CHOC 237 ML CAN PO SCH ×2 (08:18→17:42)
[2021-11-03] MEDS: ASPIRIN 81 MG TAB.CHEW PO SCH (09:41)
[2021-11-03] MEDS: GABAPENTIN 100 MG CAPSULE PO SCH ×3 (09:41→17:43)
[2021-11-03] MEDS: DULOXETINE HCL 30 MG CAPSULE.DR PO SCH (09:41)
[2021-11-03] MEDS: METOPROLOL SUCCINATE 25 MG TAB.SR.24H PO SCH (09:47)
[2021-11-03] MEDS: AMLODIPINE BESYLATE 10 MG TABLET PO SCH (09:47)
--- NOTE | 2021-11-03 12:53 | NUR ---
JAZIEL Note: SW met with patient to discuss placement. SW offered nursing facility and pt stated he wants to go to [place]. Pt refusing placement.
[2021-11-03] MEDS: LORAZEPAM 0.5 MG TABLET PO PRN (15:57)
[2021-11-03 16:00] VITALS: BP 114/70
[2021-11-03] MEDS: QUETIAPINE FUMARATE 25 MG TABLET PO SCH (21:42)
[2021-11-03] MEDS: LATANOPROST EYE DROP 0.005% 2.5 ML BOTTLE OP SCH (21:42)
[2021-11-03] MEDS: TAMSULOSIN 0.4 MG CAP.SR.24H PO SCH (21:42)
[2021-11-03 23:51] VITALS: BP 103/62
[2021-11-04] MEDS: LORAZEPAM 0.5 MG TABLET PO PRN ×2 (06:37→18:27)
--- NOTE | 2021-11-04 06:39 | NUR ---
GPS RN NOTES: PATIENT C/O ANXIETY. ATIVAN 0.5MG GIVEN PO PRN AT 0637. WILL CONTINUE TO MONITOR.
[2021-11-04] MEDS: ENSURE ENLIVE CHOC 237 ML CAN PO SCH ×2 (07:36→16:59)
[2021-11-04 08:00] VITALS: BP 112/77
[2021-11-04] MEDS: ASPIRIN 81 MG TAB.CHEW PO SCH (08:39)
[2021-11-04] MEDS: GABAPENTIN 100 MG CAPSULE PO SCH ×3 (08:39→17:00)
[2021-11-04] MEDS: DULOXETINE HCL 30 MG CAPSULE.DR PO SCH (08:39)
[2021-11-04] MEDS: METOPROLOL SUCCINATE 25 MG TAB.SR.24H PO SCH (08:50)
[2021-11-04] MEDS: AMLODIPINE BESYLATE 10 MG TABLET PO SCH (08:50)
[2021-11-04 16:00] VITALS: BP 118/66
[2021-11-04 20:00] VITALS: BP 111/73
[2021-11-04] MEDS: TAMSULOSIN 0.4 MG CAP.SR.24H PO SCH (21:26)
[2021-11-04] MEDS: LATANOPROST EYE DROP 0.005% 2.5 ML BOTTLE OP SCH (21:27)
[2021-11-04] MEDS: QUETIAPINE FUMARATE 25 MG TABLET PO SCH (21:27)
[2021-11-05 08:00] VITALS: BP 107/77
[2021-11-05] MEDS: ENSURE ENLIVE CHOC 237 ML CAN PO SCH ×2 (08:04→17:04)
[2021-11-05] MEDS: ASPIRIN 81 MG TAB.CHEW PO SCH (08:14)
[2021-11-05] MEDS: DULOXETINE HCL 30 MG CAPSULE.DR PO SCH (08:15)
[2021-11-05] MEDS: GABAPENTIN 100 MG CAPSULE PO SCH ×3 (08:15→16:27)
[2021-11-05] MEDS: AMLODIPINE BESYLATE 10 MG TABLET PO SCH (09:00)
[2021-11-05] MEDS: METOPROLOL SUCCINATE 25 MG TAB.SR.24H PO SCH (09:00)
--- NOTE | 2021-11-05 09:15 | NUR ---
GPS RN NOTES: PATIENT REFUSED AMLODIPINE 10MG AND METOPROLOL 25MG D/T LOW BP. BP107/77, P76. WILL CONTINUE TO MONITOR.
[2021-11-05 16:00] VITALS: BP 112/78
--- NOTE | 2021-11-05 16:50 | NUR ---
GPS RN NOTES: PATIENT WATCHING TV IN DAY ROOM. NO S/S OF DISTRESS. ENDORSING TO CHARGE NURSE.
[2021-11-05 20:53] VITALS: BP 119/75
--- NOTE | 2021-11-05 21:30 | NUR ---
GPS NURSING NOTES: PT REFUSING WEEKLY SKIN ASSESSMENT, PT IS EDUCATED REGARDING THE IMPORTANCE OF A SKIN ASSESSMENT, PT NODS HEAD IN UNDERSTANDING BUT CONTINUES TO REFUSE SKIN ASSESSMENT. PT REMAINS LABILE, EASILY AGITATED, AND GUARDED AT THIS TIME.
[2021-11-05] MEDS: TAMSULOSIN 0.4 MG CAP.SR.24H PO SCH (21:52)
[2021-11-05] MEDS: LATANOPROST EYE DROP 0.005% 2.5 ML BOTTLE OP SCH (21:55)
[2021-11-05] MEDS: QUETIAPINE FUMARATE 25 MG TABLET PO SCH (21:59)
[2021-11-06 08:00] VITALS: BP 122/75
[2021-11-06] MEDS: ENSURE ENLIVE CHOC 237 ML CAN PO SCH ×2 (08:00→17:43)
[2021-11-06] MEDS: DULOXETINE HCL 30 MG CAPSULE.DR PO SCH (09:14)
[2021-11-06] MEDS: AMLODIPINE BESYLATE 10 MG TABLET PO SCH (09:14)
[2021-11-06] MEDS: METOPROLOL SUCCINATE 25 MG TAB.SR.24H PO SCH (09:14)
[2021-11-06] MEDS: ASPIRIN 81 MG TAB.CHEW PO SCH (09:14)
--- NOTE | 2021-11-06 13:21 | NUR ---
SW Note: SW met with patient to discuss discharge planning. Patient expressed to this SW that he would want a longterm. SW offered pt nursing facility options and pt denied.
[2021-11-06] MEDS: GABAPENTIN 100 MG CAPSULE PO SCH ×2 (14:00→17:43)
[2021-11-06 16:00] VITALS: BP 107/68
[2021-11-06 20:00] VITALS: BP 108/59
[2021-11-06] MEDS: TAMSULOSIN 0.4 MG CAP.SR.24H PO SCH (21:11)
[2021-11-06] MEDS: LATANOPROST EYE DROP 0.005% 2.5 ML BOTTLE OP SCH (21:11)
[2021-11-06] MEDS: QUETIAPINE FUMARATE 25 MG TABLET PO SCH (22:00)
[2021-11-07 08:00] VITALS: BP 119/63
[2021-11-07] MEDS: ENSURE ENLIVE CHOC 237 ML CAN PO SCH ×2 (08:27→17:00)
[2021-11-07] MEDS: DULOXETINE HCL 30 MG CAPSULE.DR PO SCH (08:43)
[2021-11-07] MEDS: ASPIRIN 81 MG TAB.CHEW PO SCH (08:43)
[2021-11-07] MEDS: METOPROLOL SUCCINATE 25 MG TAB.SR.24H PO SCH ×2 (08:44→09:00)
[2021-11-07] MEDS: AMLODIPINE BESYLATE 10 MG TABLET PO SCH ×2 (08:44→09:00)
[2021-11-07] MEDS: GABAPENTIN 100 MG CAPSULE PO SCH ×3 (08:45→17:00)
--- NOTE | 2021-11-07 13:46 | NUR ---
JAZIEL Coordination of Care: Patient will follow up with (Transit Bus Operator) Dr. Bradley located [address] [place] [address]; ([phone]) walk-in Saturday, Saturday, , Saturday between 9:45AM. Patient will follow-up with (Psychiatrist) located [address] [address]; ([phone]) on November 09 at 1PM, scheduled by officer of the day Sana.
--- NOTE | 2021-11-07 13:54 | NUR ---
Court Hearing: Patient's court hearing for 5250 was today and the court released pt. However, pt signed voluntary and will dc tomorrow 11/08.
[2021-11-07 16:00] VITALS: BP 122/68
[2021-11-07 20:00] VITALS: BP 112/68
[2021-11-07] MEDS: TAMSULOSIN 0.4 MG CAP.SR.24H PO SCH (21:35)
[2021-11-07] MEDS: QUETIAPINE FUMARATE 25 MG TABLET PO SCH (21:36)
[2021-11-07] MEDS: LATANOPROST EYE DROP 0.005% 2.5 ML BOTTLE OP SCH (21:39)
[2021-11-08] MEDS: ENSURE ENLIVE CHOC 237 ML CAN PO SCH (08:03)
--- NOTE | 2021-11-08 08:04 | NUR ---
SW Discharge Note: Patient chooses to be discharged to Assisted located at [facility]: ([phone]) Laurie Wheeler. [place]. Patient will be given bus pass. Court released patient on 11/07/21 and pt signed as voluntary. Patient does not have any supportive contact at this time. Patient appears to be alert and oriented x3. Patient denies visual/auditory hallucinations. Patient denies suicidal or homicidal ideation. Patient will follow up with (Wax Room Supervisor) Dr. Bradley located [address] [place] [address]; ([phone]) walk-in Saturday, Saturday, , Saturday between 9:45AM. Patient will follow-up with (Psychiatrist) located [address] [address]; ([phone]) on November 09 at 1PM, scheduled by officer of the day Sana. Patient signed the homeless waiver upon discharge and a copy was placed in the chart. Homeless resources were provided and include [address] information line for shelters and homeless resources. A copy of all resources given to patient was also placed in the chart.
[2021-11-08] MEDS: DULOXETINE HCL 30 MG CAPSULE.DR PO SCH (08:08)
[2021-11-08] MEDS: ASPIRIN 81 MG TAB.CHEW PO SCH (08:08)
[2021-11-08] MEDS: AMLODIPINE BESYLATE 10 MG TABLET PO SCH (08:09)
[2021-11-08] MEDS: METOPROLOL SUCCINATE 25 MG TAB.SR.24H PO SCH (08:10)
[2021-11-08 08:43] VITALS: BP 108/69
[2021-11-08] MEDS ORDERED: GABAPENTIN 300 MG CAPSULE PO SCH (09:00)
--- NOTE | 2021-11-08 10:09 | NUR ---
Patient chooses to be discharged to [facility] located at [facility]: [phone]) Laurie [address]. [place], [address]. Patient has been given a bus pass. Court released patient on 11/07/21 and pt signed as voluntary. Patient does not have any supportive contact at this time. Patient appears to be alert and oriented x3. Patient denies visual/auditory hallucinations. Patient denies suicidal or homicidal ideation. Patient will follow up with ([facility]) Dr. Bradley located [address] [place] [id number]; ([phone]) walk-in Saturday, Saturday, , Saturday between 9:45AM. Patient will follow-up with (Psychiatrist) located [address] [address]; [phone]) on November 09 at 1PM, scheduled by officer of the day Sana. Patient signed the homeless waiver upon discharge and a copy was placed in the chart. Homeless resources were provided and include [address] information line for shelters and homeless resources. A copy of all resources given to patient was also placed in the chart. Medical and psychiatric prescriptions given to patient along with exit care instructions, education and documentation in discharge packet. All valuables and belongings signed and returned. Pt refused discharge picture. Pt escorted to main lobby via w/c by [employer] staff. Pt exited unit @ 1000am.
== END 2021-11-08 10:00 | disposition home or self-care (01) | DRG 885 ==
LOC: GPS 07:00
PROVIDERS: ADMIT Psychiatry & Neurology Psychiatry; ATTEND Registered Nurse
DX: F31.89 Other bipolar disorder (principal); R45.851 Suicidal ideations; E78.5 Hyperlipidemia, unspecified; G62.9 Polyneuropathy, unspecified; G89.4 Chronic pain syndrome; I10 Essential (primary) hypertension; I25.10 Atherosclerotic heart disease of native coronary artery without angina pectoris; J44.9 Chronic obstructive pulmonary disease, unspecified; N40.0 Benign prostatic hyperplasia without lower urinary tract symptoms; Z59.00 Homelessness unspecified; Z79.899 Other long term (current) drug therapy; Z91.14 Patient's other noncompliance with medication regimen; Z91.51 Personal history of suicidal behavior; Z91.410 Personal history of adult physical and sexual abuse
CPT/HCPCS: 36415; 80053-TC; 80061-TC; 84443-TC; 87081-TC; 97110-TC; 97116-TC; 97530-TC